=== PATIENT | female | born 1970 | race Caucasian/White ===

== ENCOUNTER 2024-11-10 10:54 | Outpatient (REF) | payer BC, SELFPAY ==
--- NOTE | ~2024-11-10 | XR_ITS ---
EXAMINATION: XR FOOT 3 OR MORE VIEWS RIGHT HISTORY: M79.671 - Pain in right foot COMPARISON: There are no prior studies available for comparison. FINDINGS: Three views of the right foot are submitted. Osseous mineralization is normal. There is no fracture or dislocation. The joint spaces are preserved. There is a small plantar calcaneus spur and small spur at the insertion of the Achilles tendon. The soft tissues are unremarkable. XR/XR foot RT min 3V IMPRESSION: Calcaneal spurs as described. Otherwise unremarkable examination of the right foot. Electronically signed by: Sánchez Saeed MD 11/10/2024 03:48 PM EDT
--- OUTSIDE RECORDS SUMMARY | 2024-11-10 14:22 | XMS_ITS ---
Author Name CRISP Organization Unknown Care Team Organization Name Specialty Phone Email Start Date End [facility]
[2024-11-10 18:17] LABS: MANUAL DIFF FLAG NO
[2024-11-10 18:29] LABS: Basophils Absolute Auto 0.1 X10*3/uL (0.0-0.2); Basophils Percent Auto 0.9 % (0-2); Eosinophils Percent Auto 0.7 % (0-4); Hematocrit 43.8 % (37.0-47.0); Hemoglobin 14.3 g/dl (12.0-16.0); Imm Gran Abs Auto 0.02 X10*3/uL (0.00-0.03); Imm Gran Pct Auto 0.4 % (0.0-0.4); Lymphocytes Absolute Auto 1.7 X10*3/uL (1.2-4.9); Mean Corpuscular HGB Conc 32.6 g/dl (31.0-35.0); Mean Platelet Volume 9.9 fL (9.4-12.3); Monocytes Absolute Auto 0.5 X10*3/uL (0.1-1.2); Monocytes Percent Auto 8.6 % (2-11); Neutrophils Absolute Auto 3.4 x10*3/uL (2.0-8.3); Neutrophils Percent Auto 59.4 % (45-73); Platelet Count 334 X10*3/uL (160-400); Red Blood Count 4.61 X10*6/uL (4.20-5.50); Red Cell Distribution Width 12.7 % (11.0-16.0); White Blood Count 5.7 X10*3/uL (4.8-10.8)
[2024-11-10 18:37] LABS: Appearance Urine Clear; Color Urine Dark Yellow; Glucose Urine UA Negative (Negative); Leukocyte Esterase Urine Negative (Negative); Nitrite Urine Negative (Negative); Urine Blood Negative (Negative); Urine Ketones Negative (Negative); Urine Protein Negative (Neg-Trace)
[2024-11-10 18:43] LABS: Bacteria Urine None Seen (None Seen); Hyaline Casts Urine 0-2 /LPF (0-2); RBC Urine 0-2 /HPF (0-2); Squamous Epithelial Cell Urine 0-2 /HPF (0-2); WBC Urine 0-5 /HPF (0-5)
[2024-11-10 18:46] LABS: Alanine Aminotransferase 62 U/L (0-31); Aspartate Amino Transferase 66 U/L (5-31); Estimated Glomerular Filt Rate > 60
[2024-11-10 19:01] LABS: Creatinine Urine 97.31 mg/dL; Protein/Creatinine Ratio, Ur 0.11 (<0.2); Total Protein Urine Random 11 mg/dL (<12)
[2024-11-10 19:10] LABS: Erythrocyte Sedimentation Rate 13 MM/HR (0-20)
[2024-11-11 09:38] LABS: Complement C3 167 mg/dL (83-193)
[2024-11-11 22:28] LABS: Anti DNA DS Antibody 1 IU/mL; Antibody to SS-A Antigen <1.0 NEG AI (<1.0 NEG); Antibody to SS-B Antigen <1.0 NEG AI (<1.0 NEG); SM/Ribonucleoprotein Ab <1.0 NEG AI (<1.0 NEG); Smith Protein <1.0 NEG AI (<1.0 NEG)
== END 2024-11-10 10:55 | disposition home or self-care (01) ==
LOC: HO.HKASLDS 10:54
PROVIDERS: PCP Internal Medicine; Visit Provider Internal Medicine Rheumatology
DX: R76.8 Other specified abnormal immunological findings in serum (principal); M79.671 Pain in right foot; R20.0 Anesthesia of skin
CPT/HCPCS: 36415; 73630; 81001; 82565; 82570; 84156; 84450; 84460; 85025; 85652; 86160; 86225; 86235

== ENCOUNTER 2024-11-10 10:54 | Outpatient (AMB) | payer BC, SELFPAY ==
--- NOTE | 2024-11-10 11:05 | MHC.OFFVIS ---
Vital Signs 11/10/24 11:13 Height 5 ft 5.5 in Weight 253 lb 15.56 oz BMI 41.6 BP 126/80 Blood Pressure Location Rt brachial Position Sitting Pulse 90 Pulse Source Pulse Oximeter Pulse Oximetry (%) 98 Oxygen Delivery Method Room Air Intake Visit Reasons: + RAVINDRA Intake Note: Patient presents today for positive ravindra. Accompanied by: Spouse Allergies No Known Allergies Allergy (Verified 11/10/24 11:15) HPI HPI + RAVINDRA: Details: New patient visit due to low titer positive RAVINDRA 1:80. She developed diffuse pruritis rash on face and extremities with bumps in June 2024. She also had swelling and erythema of her earlobes. Lasted weeks. Used 's topical steroid, which resolved a lot of the rash. She continues to have lesions such as on her right thigh but they are not as pruritic. She is not treating the lesions at this time. She has had longstanding erythema on her face including her cheeks exacerbated with anxiety and when she feels hot. Denies new medications prior to onset of rash. Denies sickness/illness prior to onset of rash. Prior to onset of rash, she started resin art in February-Jun 2024. 2 weeks ago she had sunburn anterior chest from being outside for 20 minutes. Hair is thinner. She denies bald spots. She has not shaved her hair on her legs in a long time. Hand numbness in bilateral hands attributed to cervical nerve compression. She had cervical diskectomy performed by Dr. Hurtado. Numbness in hands is progressively getting worse. Hard to use hands. She can't feel her hands. 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 She no longer works outside of school commitments. She has to work as a hairdresser for 40 years. R foot pain is constant with swelling for a year. She is having difficulty walking due foot pain and due to exhaustion and fatigue despite sleeping 10 hours. Hx LUI on CPAP. +night sweats. Denies fevers, dyspnea, pleurisy, oral ulcers, genital ulcers, Raynaud's phenomenon, urinary symptoms. She has mild dry eyes and dry mouth. She has had history of hypertension, cervical myelopathy, fibromyalgia, chronic bacterial vaginosis infection, cholecystectomy and cervical diskectomy. Medication list reviewed with patient. No family history of rheumatological disease. COUNTS INCLUDE 234 BEDS AT THE [facility] Medical History (Updated 11/10/24 @ 15:28 by Ector Gates MD) Sleep apnea Asthma Cervical myelopathy Spinal stenosis Fibromyalgia Fracture of left lower leg Positive RAVINDRA (antinuclear antibody) Surgical History (Updated 11/10/24 @ 11:20 by Julissa Bradley CMA) H/O colectomy History of discectomy Review of Systems Const All systems reviewed & are unremarkable except as noted in HPI and below Physical Exam Vital Signs: Last Vital Signs Pulse 90 11/10/24 11:13 BP 126/80 11/10/24 11:13 Pulse Ox 98 11/10/24 11:13 Oxygen Delivery Method Room Air 11/10/24 11:13 BMI result Body Mass Index 41.6 Const Other: General: Comfortable CVS: RRR Respiratory: clear to auscultation bilaterally. Good respiratory effort Skin: Erythema of face involving forehead, chin, cheeks, which does not spare nasolabial fold. Hyperpigmented circular lesions on right medial thigh and bilateral forearms. MSK: No tenderness or synovitis of any joints. Normal range of motion of upper extremity and lower extremity. Positive Phalen's test bilateral Assessment & Plan Assessment & Plan (1) Bilateral hand numbness: Comment: Chronic. Her symptoms of bilateral hand numbness have been attributed to cervical myelopathy although symptoms have not improved after C-spine discectomy. She has had progressive worsening of symptoms with reduced function as she is no longer able to continue to be a hairdresser. Phalen's test is positive on exam. Code(s): R20.0 - Anesthesia of skin Category: Medical Plan: EMG upper extremities ordered for evaluation of possible carpal tunnel syndrome contributing to patient's symptoms Return to clinic in 1-2 months for review results (2) Positive RAVINDRA (antinuclear antibody): Comment: Low titer positive, fatigue, sicca symptoms is concerning for Sjogren syndrome. She is also experiencing hair loss and photosensitivity. Her labs from 2023 did not reveal cytopenia, kidney dysfunction or elevated inflammatory markers with normal TSH. She had a diffuse pruritic rash in June with improvement with using topical steroid but she continues to have erythematous lesions on her extremities of unclear etiology. I reviewed photos that patient had in her phone. Her rash does not represent classic cutaneous manifestation of connective tissue disease. Code(s): R76.8 - Other specified abnormal immunological findings in serum Category: Medical Plan: I recommend that she contact PCP for Dermatology consult for evaluation of her rash and further management I have ordered labs for further evaluation of Sjogren syndrome and will complete workup for SLE. Return to clinic in 1-2 months to review results (3) Right foot pain: Comment: Affecting gait. She had tenderness of MTPs without synovitis on exam. Code(s): M79.671 - Pain in right foot Category: Medical Plan: Right foot x-ray ordered Return to clinic in 1-2 months to review results Orders: Orders NE nerve conduction velocity Today R20.0 - Anesthesia of skin Sjogren's Antibodies Today R76.8 - Other specified abnormal immunological findings in serum Sm Sm/CAGER OPERATOR Antibodies Today R76.8 - Other specified abnormal immunological findings in serum Complement C3 Today R76.8 - Other specified abnormal immunological findings in serum Erythrocyte Sedimentation Rate Today R76.8 - Other specified abnormal immunological findings in serum Protein Creatinine Ratio, Ur Today R76.8 - Other specified abnormal immunological findings in serum Creatinine Today R76.8 - Other specified abnormal immunological findings in serum Anti DNA DS Antibody Today R76.8 - Other specified abnormal immunological findings in serum Complement C4 Today R76.8 - Other specified abnormal immunological findings in serum UA w Microscopic Today R76.8 - Other specified abnormal immunological findings in serum Alanine Aminotransferase Today R76.8 - Other specified abnormal immunological findings in serum Aspartate Amino Transferase Today R76.8 - Other specified abnormal immunological findings in serum Complete Blood Count Auto Diff Today R76.8 - Other specified abnormal immunological findings in serum XR foot RT min 3V Today M79.671 - Pain in right foot Coding Level of Care Code New Pt Level 4 (90661) Diagnoses Bilateral hand numbness R20.0 Positive RAVINDRA (antinuclear antibody) R76.8 Right foot pain M79.671
[2024-11-10 11:13] VITALS: BP 126/80; PULSE 90; O2SAT 98; BMI 41.6
--- OUTSIDE RECORDS SUMMARY | 2024-11-10 12:48 | XMS_ITS | Continuity of Care Document ---
Author Organization [facility] Address [address] [place] [address]- Support Name Relationship Address Phone ROSANNE MARSHA Personal Relationship Unknown Unava ilable LAY, NICOL Personal Relationship Unknown Unavai lable LAY, NICOL Personal Relationship Unknown Unavai lable OSIRIS CAIN mother Unknown Unavailable ROSANNE MARSHA Personal Relationship Unknown Unava ilable LAY, NICOL Personal Relationship Unknown Unavai lable LAY, NICOL Personal Relationship Unknown Unavai lable LAY, NICOL Personal Relationship Unknown Unavai lable LAY, NOHELIA Personal Relationship Unknown Unav ailable LAY, NICOL Personal Relationship Unknown Unavai lable ROSANNE, IVELISSEK Personal Relationship Unknown Unavai lable LAY, NICOL Personal Relationship Unknown Unavai lable LAY, NOHELIA Personal Relationship Unknown Unav ailable LAY, NOHELIA Personal Relationship Unknown Unav ailable LAY, NICOL Personal Relationship Unknown Unavai lable LAY, NICOL Personal Relationship Unknown Unavai lable LAY, NICOL Personal Relationship Unknown Unavai lable LAY, NICOL Personal Relationship Unknown Unavai lable BEVERLY LOPEZ Personal Relationship Unknown Unav ailable LAY, NICOL Personal Relationship Unknown Unavai lable LAY, NICOL Personal Relationship Unknown Unavai lable LAY, NOHELIA Personal Relationship Unknown Unav ailable LAY, NICOL Personal Relationship Unknown Unavai lable LAY, NOHELIA Personal Relationship Unknown Unav ailable LAY, NICOL Personal Relationship Unknown Unavai lable LAY, NICOL spouse Unknown Unavailable LAY, NICOL Personal Relationship Unknown Unavai lable LAY, NICOL Personal Relationship Unknown Unavai lable LAY, NICOL Personal Relationship Unknown Unavai lable LAY, NICOL spouse Unknown Unavailable LAY, NICOL Personal Relationship Unknown Unavai lable LAY, NICOL Personal Relationship Unknown Unavai lable LAY, NICOL Personal Relationship Unknown Unavai lable ROSANNE, NICOL Personal Relationship Unknown Unavai lable LAY, NICOL Personal Relationship Unknown Unavai lable LAY, NICOL Personal Relationship Unknown Unavai lable JOHN BEVERLY Personal Relationship Unknown Unav ailable LAY, NICOL Personal Relationship Unknown Unavai lable LAY, NICOL Personal Relationship Unknown Unavai lable ROSANNE, NICOL Personal Relationship Unknown Unavai lable LAY, NICOL Personal Relationship Unknown Unavai lable LAY, NICOL Personal Relationship Unknown Unavai lable Care Team Providers Care Wheat Buyer Name Role Phone Acacia Mcneal MD Primary Care Physician [phone] Encounter [facility] Date(s): 10/29/24 - 11/05/24 [facility] [address] [place] [id number] Encounter Diagnosis Adjustment disorder with mixed anxiety and depressed mood(Discharge Diagnosis) - 10/29/24 HTN (hypertension)(Discharge Diagnosis) - 10/29/24 Severe obesity(Discharge Diagnosis) - 10/29/24 LUI on CPAP(Discharge Diagnosis) - 10/29/24 Attending Physician: Acacia Mcneal MD Encounter Type: Office Visit Allergies, Adverse Reactions, Alerts Substance Criticality Severity Reaction Reaction Severity Status Bactrim ? reaction Active Cats congestion Active Mold asthma attack Active Grass congestion/sneezing Active house dust mite allergen extract congestion/sneezing Acti ve Latex skin rash Active Immunizations Given and Recorded Vaccine Date Status Refusal Reason influenza virus vaccine, inactivated 06/18/22 Give n influenza virus vaccine, inactivated 05/14/21 Giovani rded influenza virus vaccine, inactivated 1 07/29/19 Gi kevin influenza virus vaccine, inactivated 2 05/21/11 Gi kevin influenza virus vaccine, inactivated 3 05/15/08 Gi kevin SARS-CoV-2 (COVID-19) mRNA BNT-162b2 vac 05/14/21 Recorded SARS-CoV-2 (COVID-19) mRNA BNT-162b2 vac 10/10/20 Recorded SARS-CoV-2 (COVID-19) mRNA BNT-162b2 vac 09/18/20 Recorded tetanus/diphtheria/pertussis, acel(Tdap) 4 07/29/19 Given Adacel (Tdap) (oldterm) 04/19/09 Given FluLaval (oldterm) 04/19/09 Given 1Result Comment: pt handled procedure well with no complaints. PROPERTY ANALYST NDC: [id number] 2Admin Note: MANUFACTURE BIOMEDICAL INFO SHEET GIVEN GIVEN W/O INCIDENT 3Admin Note: givenb @ work 4Result Comment: pt handled procedure well with no complaints. PROPERTY ANALYST NDC: [id number] Medications amlodipine-benazepril 5 mg-10 mg oral capsule 1 capsule, By Mouth, Daily, # 90 capsule, 1 Refills, Maintenance, 08/30/24 1:19:00 PM EST, Capsule, [id number], Partial fill upon patient request if the prescription is for a schedule II opioid drug., 1 capsule By Mouth Daily, 166, cm, 08/30/24 12:45:00 EST, Height, 114.5, kg, 08/30/24 12:37:00 EST, Dry Weight Start Date: 08/30/24 Status: Ordered Quantity: 90.0 Unit: capsule Repeat number: 2 Ascorbic Acid = 1,000 mg, By Mouth, Daily, 0 Refills, Maintenance, 06/11/19 8:19:21 AM EST Start Date: 06/11/19 Status: Ordered Repeat number: 1 Breyna 160 mcg-4.5 mcg/inh inhalation aerosol 2 inhalation, Inhalation, 2 times a day, rinse mouth and throat after use, # 10.3 Gm, 6 Refills, Maintenance, 10/01/24 3:36:00 PM EST, Aerosol, [id number], Partial fill upon patient request ifthe prescription is for a schedule II opioid drug., 2 inhalation Inhalation 2 times a day,Instr:rinse mouth and throat after use, 166, cm, 10/01/24 14:59:00 EST, Height, 114.5, kg, 08/30/24 12:37:00 EST, Dry Weight Start Date: 10/01/24 Status: Ordered Quantity: 10.3 Unit: g Repeat number: 7 cholecalciferol 1000 intl units oral capsule 1 capsule = 1,000 International_Units, By Mouth, Daily, 0 Refills, Maintenance, 06/11/19 8:20:05 AM EST Start Date: 06/11/19 Status: Ordered Repeat number: 1 Colace sodium 100 mg oral capsule 100 mg, 1, capsule, By Mouth, 2 times a day, PRN, # 60 capsule, Refills 11, Tot. Refills 11, Maintenance, for constipation, 10/25/22 1:42:00 PM EDT, Route to Pharmacy Electronically, [id number], Partial fill upon patient request if the prescription is for a schedule II opioid drug., 167.4, cm, 10/25/22 13:07:00 EDT, Height, 109, kg, 02/28/22 14:32:00 EDT, Dry Weight Start Date: 10/25/22 Status: Ordered Quantity: 60.0 Unit: capsule Repeat number: 12 CPAP Machine See Instructions, # 1 each, Refills 11, Tot. Refills 11, Maintenance, E0601 AutoCPAP 7 to 20 cm [id number] compliance data A4604 Heated Tubing/Climate line or A7037 Tubing A7038 or A7039 Filters A7036 Chin strap A7046 Humidifier Chamber A7035 Headgear A7027, A7030, A7031, A7032, A7033, A7034 Nasal, Full or Pillow Mask and parts E0562 Heated Humidifier length of need Lifetime 99 months For home use,07/22/22 4:58:00 PM EST, Supply Start Date: 07/22/22 Status: Ordered Quantity: 1.0 Unit: each Repeat number: 12 DULoxetine 40 mg oral delayed release capsule 1 capsule = 40 mg, By Mouth, Daily, do not crush or chew, # 30 capsule, 5 Refills, Maintenance, 10/29/24 3:51:00 PM EDT, CR Capsule, [facility]pharm[facility] #[id number], Partial fill upon patient request if the prescription is for a schedule II opioid drug., 166, cm, 10/29/24 15:22:00 EDT, Height, 116.2, kg, 10/29/24 15:22:00 EDT, Dry Weight Start Date: 10/29/24 Status: Ordered Quantity: 30.0 Unit: capsule Repeat number: 6 estradiol 0.1 mg/g vaginal cream See Instructions, 1 Gm Vaginally twice weekly at bedtime, # 42.5 Gm, 2 Refills, Maintenance, 06/07/24 10:31:00 AM EST, [facility]pharmacy #[id number], Partial fill upon patient request if the prescription is for a schedule II opioid drug., 165, cm, 06/07/24 9:47:00 EST, Height, 114.9, kg, 06/07/24 9:47:00 EST, Dry Weight Start Date: 06/07/24 Status: Ordered Quantity: 42.5 Unit: g Repeat number: 3 Indication: Other specified menopausal and perimenopausal disorders Immunotherapy injections Immunotherapy injections, Refills 0, Maintenance, 2 shots every week, 06/10/19 3:16:18 PM EST, Compound Start Date: 06/10/19 Status: Ordered Repeat number: 1 ipratropium nasal 21 mcg/inh spray 2 sprays = 42 mcg, Nares, Both, 2 times a day, # 30 mL, 6 Refills, Maintenance, 10/01/24 3:33:00 PM EST, [place], [facility]/pharmacy #[id number], Partial fill upon patient request if the prescription is for a schedule II opioid drug., 2 sprays Nares, Both 2 times a day, 166, cm, 10/01/24 14:59:00 EST, Height, 114.5, kg, 08/30/24 12:37:00 EST, Dry Weight Start Date: 10/01/24 Status: Ordered Quantity: 30.0 Unit: mL Repeat number: 7 omeprazole 40 mg oral enteric coated capsule 1 capsule = 40 mg, By Mouth, Daily, # 90 capsule, 3 Refills, Maintenance, 03/05/19 10:17:27 AM EDT, EC Capsule, [id number] Start Date: 03/05/19 Status: Ordered Quantity: 90.0 Unit: capsule Repeat number: 4 PAP Supplies PAP Supplies, See Instructions, # 1 each, Refills 11, Tot. Refills 11, Maintenance, E0570 PAP supplies Refill mask and supplies A4604 Heated Tubing/Climate line or A7037 Tubing A7038 or A7039 [id number] Chin strap A7046 Humidifier Chamber A7035 Headgear A7027, A7030, A7031, A7032, A7033, A7034 Na ramila, Full or Pillow Mask and parts E0562 Heated Humidifier length of need Lifetime 99 months Dx [id number], 10/04/24 9:58:00 AM EST, Supply Start Date: 10/04/24 Status: Ordered Quantity: 1.0 Unit: each Repeat number: 12 ProAir HFA 90 mcg/inh inhalation aerosol with adapter 2, puffs, Inhalation, Every 6 hours, PRN, PRN, # 18 Gm, Refills 11, Tot. Refills 11, Maintenance, 09/16/23 11:04:00 AM EST, Inhaler, Route to Pharmacy Electronically, [id number], [facility]pharmacy #[id number], 167.4, cm, 02/12/23 13:47:00 EDT, Height, 109, kg, 02/28/22 14:32:00 EDT, Dry Weight Start Date: 09/16/23 Status: Ordered Quantity: 18.0 Unit: g Repeat number: 12 Spacer Spacer, See Instructions, # 1 each, Refills 3, Tot. Refills 3, Maintenance, To be used with MDI as directed. ICD-10 J45.909, 10/01/24 3:38:00 PM EST, Supply, 166, cm, 10/01/24 14:59:00 EST, Height, 114.5, kg, 08/30/24 12:37:00 EST, Dry Weight Start Date: 10/01/24 Status: Ordered Quantity: 1.0 Unit: each Repeat number: 4 Viactiv Multi-Vitamin Daily, 0 Refills, Maintenance, 06/07/24 9:49:00 AM EST, Partial fill upon patient request if the prescription is for a schedule II opioid drug. Start Date: 06/07/24 Status: Ordered Repeat number: 1 Vitamin C 250 mg oral tablet 1 tablet = 250 mg, By Mouth, Daily, # 30 tablet, 0 Refills, Maintenance, 06/07/24 9:48:00 AM EST, Tablet, Partial fill upon patient request if the prescription is for a schedule II opioid drug. Start Date: 06/07/24 Status: Ordered Quantity: 30.0 Unit: tablet Repeat number: 1 Xyzal 5 mg oral tablet 1 tablet = 5 mg, By Mouth, Daily before dinner, # 30 tablet, 3 Refills, Maintenance, 06/24/24 1:55:00 PM EST, Tablet, [facility]/pharmacy #[id number], Partial fill upon patient request if the prescription is for a schedule II opioid drug., 1 tablet By Mouth Daily before dinner, 165, cm, 06/24/24 13:34:00 EST, Height, 114.9, kg, 06/07/24 9:47:00 EST, Dry Weight Start Date: 06/24/24 Status: Ordered Quantity: 30.0 Unit: tablet Repeat number: 4 Problem List Condition Confirmation Course Effective Dates Status Health St atus Informant Adjustment disorder with mixed anxiety and depressed mood Confirmed Active Alcohol abuse Confirmed Active Allergic rhinitis Confirmed Active Facet arthropathy, lumbosacral Confirmed Active Asthma Confirmed Active CLASSICAL MIGRAINE Confirmed 10/17/08 Active Constipation Confirmed Active Sleeping difficulty Confirmed Active Diverticular disease Confirmed Active Eustachian tube dysfunction Confirmed Active Shortness of breath Confirmed Active Eczema Confirmed Active Female stress incontinence Confirmed Active Fibromyalgia Confirmed Active Generalized anxiety disorder Confirmed Active Herpetic darrin Confirmed Active HTN (hypertension) Confirmed Active Bowel incontinence Confirmed Active Kidney stone Confirmed Active Obesity Confirmed Active LUI on CPAP Confirmed Active Sacroiliac dysfunction Confirmed Active Severe obesity Confirmed Active Cervical spinal stenosis Confirmed Active Fatty liver Confirmed Active Diagnosis Diagnosis Type Effective Dates Health Status Clinical Service Informant Adjustment disorder with mixed anxiety and depressed mood Discharge Diagnosis 10/29/24 HTN (hypertension) Discharge Diagnosis 10/29/24 Severe obesity Discharge Diagnosis 10/29/24 LUI on CPAP Discharge Diagnosis 10/29/24 Vital Signs Most recent to oldest [Reference Range]: 1 2 Height 166 cm (10/29/24 4:01 PM) 166 cm (10/29/24 3:22 PM) Weight 116.2 kg (10/29/24 3:22 PM) Oxygen Saturation [94-100 %] 96 % (10/29/24 3:22 PM) Pulse Rate [55-90 bpm] 93 bpm *H* (10/29/24 3:22 PM) Body Mass Index [18.5-24.99 kg/m2] 42.17 kg/m2 *>HHI* (10/29/24 3:22 PM) Blood Pressure [90-138/55-84 mm Hg] 136/ 70mm Hg (10/29/24 4:01 PM) 143/81mm Hg *H* (10/29/24 3:22 PM) Mode of Delivery (Oxygen) Room air (10/29/24 3:22 PM) Blood pressure sites Arm, left (10/29/24 3:22 PM) Dry Weight 116.2 kg (10/29/24 3:22 PM) Weight Obtained Via Standing scale (10/29/24 3:22 PM) Social History Social History Type Response Smoking Status Never (less than 100 in lifetime) entered on: 12/08/23 Sex Sex Representation Female (finding) Patient Care team information Care Team Personnel Name: Acacia Mcneal MD Position: [facility] Physician - Primary Care Member Role: PCP Address: [address] [place] [address] Adult and Pediatric Medicine [address] Telecom: Name: Luigi Mancilla [place] Position: [facility] [place] Member Role: Primary Care Nurse Name: Dana Junior RN Position: [facility] RN Member Role: Primary Care Nurse Name: Marta Pack RN Position: [facility] RN Member Role: Primary Care Nurse Name: Kathi Guzmán RN Position: [facility] RN Member Role: Primary Care Nurse Name: Gali Dc RN Position: [facility] RN Member Role: Primary Care Nurse Name: Christine Traore RN Position: [facility] RN Member Role: Primary Care Nurse Name: Bettina Chamberlain RN Position: [facility] RN Member Role: Primary Care Nurse Care Team Related Persons Name: OSIRIS CAIN Name: NICOL LAY Insurance Providers Guarantor name: MARSHA LAY Health Plan Information #: 1 Payer: HMO [employer] Member Number: [id number] Policy Number: NA Group Number: [id number] Health Plan Information #: 2 Payer: HMO [employer] Member Number: [id number] Policy Number: NA Group Number: NA
--- OUTSIDE RECORDS SUMMARY | 2024-11-10 12:48 | XMS_ITS | Data Portability ---
Author Organization [facility] - [facility], Allergy Address 100 [facility] 100 [place] [address] Assessment Encounter Date Assessment Date Assessment LastModified by Organization Details LastModified Time 08/26/2024 08/26/2024 Visit With: Ela Rivera Use of Antihistamine s: No If yes: Vial Test Yes Change in medications: No If yes ? ? ? Increase in asthma symptoms No If yes, inhaler use: Reaction to last injections: Yes If yes: ? ? ?large local reaction- all doses reduced Allergy Symptoms: Other: ? ? ? Missed: Dose Aware of Vial Test Notes:? ? ? hlorinser Not available 08/26/2024 16:01:20 09/10/2024 09/10/2024 Visit With: NETTA Boswell Use of Antihistamine s: No If yes: Vial Test Change in medications: No If yes ? ? ? Increase in asthma symptoms If yes, inhaler use: Reaction to last injections: No If yes: ? ? ? Allergy Symptoms: Other: ? ? ? Missed: Dose Aware of Vial Test Notes:? ? ? isael Not available 09/10/2024 15:30:02 09/24/2024 09/24/2024 Visit With: NETTA Boswell Use of Antihistamine s: No If yes: Vial Test Change in medications: No If yes ? ? ? Increase in asthma symptoms No If yes, inhaler use: Reaction to last injections: No If yes: ? ? ? Allergy Symptoms: Other: ? ? ? Missed: Dose Aware of Vial Test Notes:? ? ? hlorinser Not available 09/24/2024 13:22:52 10/07/2024 10/07/2024 Visit With: NETTA Boswell Use of Antihistamine s: No If yes: Vial Test Change in medications: Yes If yes ? ? ?symbicort Increase in asthma symptoms No If yes, inhaler use: Reaction to last injections: No If yes: ? ? ? Allergy Symptoms: Other: ? ? ? Missed: Dose Aware of Vial Test Notes:? ? ? hlorinser Not available 10/07/2024 15:25:32 10/21/2024 10/21/2024 Visit With: NETTA Boswell Use of Antihistamine s: No If yes: Vial Test Change in medications: No If yes ? ? ? Increase in asthma symptoms If yes, inhaler use: Reaction to last injections: No If yes: ? ? ? Allergy Symptoms: Other: ? ? ? Missed: Dose Aware of Vial Test Notes:? ? ?back to monthly skorzec Not available 10/21/2024 15:26:51 Plan of Treatment Reminders Order Date Submit Date Provider Last Modified By Organization Details Last Modified Time Details Appointments [facility]- Allergy f-up 6mon 2024 10:00A M DIOGENES COLLIER MD Not available Not available Not available Lab None recorded . Referral None recorded . Procedures None recorded . Surgeries None recorded . Imaging None recorded . Medication Orders None recorded . Patient TargetsNo targets recorded. Patient InstructionsNo instructions recorded. Reason for Referral None Reported. Problems Name Problem SNOMED Code Status Onset Date Resolution Date Notes Provider Name and Address Organization Details Recorded Time Nasal congestio n 68756483 Active 2018 Nasal congestio n; Note: Date Diagnosed : 12/18/2018 9:40 AM (R09.81) Not Available [facility] 4 02:24:22 History of SARS-CoV- 2 [id number] Active 2022 Personal history of COVID-19; Note: Date Diagnosed : 08/23/2022 2:26 PM (Z86.16) Not Available [facility] 4 02:23:55 Deviated nasal septum 430074476 Active 2018 Deviated nasal septum; Note: Date Diagnosed : 12/18/2018 9:37 AM (J34.2) Not Available [facility] 4 02:23:47 Impacted cerumen in left ear 28260527057 38860 Active 2020 Impacted cerumen, left ear; Note: Date Diagnosed : 08/16/2020 4:18 PM (H61.22) Not Available [facility] 02:23:57 Allergic rhinitis 04639360 Active 2023 Allergic rhinitis: Due to other allergen; Note: Date Diagnosed : 08/21/2023 4:00 PM (477.8) Note: Date Diagnosed : 08/21/2023 4:00 PM (477.8) Allergi c rhinitis: Due to other allergen; Note: Date Diagnosed : 08/08/2023 3:58 PM (477.8) Note: Date Diagnosed : 08/08/2023 3:58 PM (477.8) ; Start Date : Allergi c rhinitis: Due to other allergen; Note: Date Diagnosed : 3 3:41 PM (477.8) Note: Date Diagnosed : 3 3:41 PM (477.8) ; Start Date : 3 Allergi c rhinitis: Due to other allergen; Note: Date Diagnosed : 3 3:53 PM (477.8) Note: Date Diagnosed : 3 3:53 PM (477.8) ; Start Date : 3 Allergi c rhinitis: Due to other allergen; Note: Date Diagnosed : 07/11/2023 3:30 PM (477.8) Note: Date Diagnosed : 07/11/2023 3:30 PM (477.8) ; Start Date : 3 Allergi c rhinitis: Due to other allergen; Note: Date Diagnosed : 3 4:08 PM (477.8) Note: Date Diagnosed : 3 4:08 PM (477.8) ; Start Date : 3 Allergi c rhinitis: Due to other allergen; Note: Date Diagnosed : 3 3:51 PM (477.8) Note: Date Diagnosed : 3 3:51 PM (477.8) ; Start Date : 3 Allergi c rhinitis: Due to other allergen; Note: Date Diagnosed : 06/12/2023 3:55 PM (477.8) Note: Date Diagnosed : 06/12/2023 3:55 PM (477.8) ; Start Date : Allergi c rhinitis: Due to other allergen; Note: Date Diagnosed : 06/06/2023 2:55 PM (477.8) Note: Date Diagnosed : 06/06/2023 2:55 PM (477.8) ; Start Date : Allergi c rhinitis: Due to other allergen; Note: Date Diagnosed : 3:19 PM (477.8) Note: Date Diagnosed : 3:19 PM (477.8) ; Start Date : Allergi c rhinitis: Due to other allergen; Note: Date Diagnosed : 10:51 AM (477.8) Note: Date Diagnosed : 10:51 AM (477.8) ; Start Date : Allergi c rhinitis: Due to other allergen; Note: Date Diagnosed : 05/02/2023 3:57 PM (477.8) Note: Date Diagnosed : 05/02/2023 3:57 PM (477.8) ; Start Date : Allergi c rhinitis: Due to other allergen; Note: Date Diagnosed : 04/17/2023 3:18 PM (477.8) Note: Date Diagnosed : 04/17/2023 3:18 PM (477.8) ; Start Date : Allergi c rhinitis: Due to other allergen; Note: Date Diagnosed : 04/11/2023 3:18 PM (477.8) Note: Date Diagnosed : 04/11/2023 3:18 PM (477.8) ; Start Date : Allergi c rhinitis: Due to other allergen; Note: Date Diagnosed : 04/04/2023 3:05 PM (477.8) Note: Date Diagnosed : 04/04/2023 3:05 PM (477.8) ; Start Date : Allergi c rhinitis: Due to other allergen; Note: Date Diagnosed : 03/28/2023 11:48 AM (477.8) Note: Date Diagnosed : 03/28/2023 11:48 AM (477.8) ; Start Date : Allergi c rhinitis: Due to other allergen; Note: Date Diagnosed : 03/11/2023 2:32 PM (477.8) Note: Date Diagnosed : 03/11/2023 2:32 PM (477.8) ; Start Date : Allergi c rhinitis: Due to other allergen; Note: Date Diagnosed : 03/07/2023 3:06 PM (477.8) Note: Date Diagnosed : 03/07/2023 3:06 PM (477.8) ; Start Date : Allergi c rhinitis: Due to other allergen; Note: Date Diagnosed : 02/27/2023 3:22 PM (477.8) Note: Date Diagnosed : 02/27/2023 3:22 PM (477.8) ; Start Date : Allergi c rhinitis: Due to other allergen; Note: Date Diagnosed : 02/21/2023 2:53 PM (477.8) Note: Date Diagnosed : 02/21/2023 2:53 PM (477.8) ; Start Date : Allergi c rhinitis: Due to other allergen; Note: Date Diagnosed : 02/13/2023 3:19 PM (477.8) Note: Date Diagnosed : 02/13/2023 3:19 PM (477.8) ; Start Date : Allergi c rhinitis: Due to other allergen; Note: Date Diagnosed : 01/31/2023 12:06 PM (477.8) Note: Date Diagnosed : 01/31/2023 12:06 PM (477.8) ; Start Date : Allergi c rhinitis: Due to other allergen; Note: Date Diagnosed : 01/23/2023 2:36 PM (477.8) Note: Date Diagnosed : 01/23/2023 2:36 PM (477.8) ; Start Date : Allergi c rhinitis: Due to other allergen; Note: Date Diagnosed : 01/03/2023 4:07 PM (477.8) Note: Date DIOGENES COLLIER MD [address] [facility],[place] [address], [place], [address] , [facility] - [facility] 4 13:58:13 Impacted cerumen in right ear [id number] 74893 Active 2019 Impacted cerumen, right ear; Note: Date Diagnosed : 02/15/2020 10:41 AM (H61.21) Not Available [facility] 4 02:23:50 Perennial allergic rhinitis 501293408 Active 2023 EDITA RIVER [address],[place] [address], [place], [address] , [facility] - [facility] 4 15:54:54 Feeling of lump in throat 539590410 Active 2024 DIOGENES COLLIER MD [address] [facility],[place] [address], [place], [address] , [facility] - [facility] 5 16:07:00 Problem Notes None recorded. Procedures Surgical History Date Name Laterality Status Provider Name and Address Organization Details Recorded Time 10/22/19 25 Allergy Immunotherapy Injections completed EDITA RIVER Mehul [address] [facility] [facility] [place],[address], [address], [facility] - [facility] 10/21/2024 15:26:36 10/08/19 25 Allergy Immunotherapy Injections completed BRADLEY VERDE RN [address] [facility],[address], [address], [facility] - [facility] 10/07/2024 15:25:19 09/24/19 25 Allergy Immunotherapy Injections completed BRADLEY VERDE RN [address] [place] [address],[address], [phone], [facility] - [facility] 09/24/2024 13:22:38 09/10/19 25 Allergy Immunotherapy Injections completed EDITA RIVER Mehul [address] [facility] [place],[address], [address], [facility] - [facility] 09/10/2024 15:29:54 08/26/19 25 Allergy Immunotherapy Injections completed BRADLEY VERDE RN [address] [facility] [place] [address] [place] [address], [phone], [place] - [facility] 08/26/2024 16:00:24 08/26/19 25 FOL_DP completed DIOGENES COLLIER MD [address],[place] [address] [place] [address], [phone], [place] - [facility] 08/26/2024 16:06:52 07/22/20 24 Allergy Immunotherapy Injections completed NETTA RAZO [address],[place] [address] [place] [address], [phone], [place] - [facility] 07/22/2024 15:43:50 07/14/20 24 Allergy Immunotherapy Injections completed NETTA RAZO [address],[place] [address] [place] [address], [phone], [place] - [facility] 07/14/2024 15:50:30 05/25/20 24 Allergy Immunotherapy Injections completed NETTA RAZO [address] [facility] [place] [address] [place] [address], [phone], [place] - [facility] 05/25/2024 16:20:23 04/21/20 24 Allergy Immunotherapy Injections completed BRADLEY VERDE RN [address],[place] [address] [place] [address], [phone], [place] - [facility] 04/21/2024 16:01:19 03/23/20 24 Allergy Immunotherapy Injections completed NETTA BOSWELL [address],[place] [address] [place] [address], [phone], [place] - [facility] 03/23/2024 12:14:10 02/17/20 24 Allergy Immunotherapy Injections completed NETTA RAZO [address],[place] [address] [place] [address], [phone], [place] - [facility] 02/17/2024 14:42:06 01/15/20 24 Allergy Immunotherapy Injections completed NETTA RAZO [address] [facility] [place] [address] [place] [address], [phone], [place] - [facility] 01/15/2024 15:52:48 01/02/20 24 Allergy Immunotherapy Injections completed [address], [address], [facility] 01/02/2024 15:15:36 12/19/19 24 Allergy Immunotherapy Injections completed [facility], [facility] [address] [facility],[address], [address], [facility] 12/19/2023 15:55:22 Imaging Results None recorded. Procedure Notes None recorded. Medical Equipment None Reported. Allergies Allergen ID Allergen Name Allergen Category Reaction Reaction Severity Criticality Documentation Date Start Date Code Code System Note Provider Name and Address Organization Details Recorded Time 59875 Latex (substanc e) environme nt,medica tion hives Not available Not available 12/16/2023 49833 8007 SNOMED React ion: skin rashe s, hives ;; Not Available [facility] 4 00:53:15 28048 Bactrim medicatio n other Not available Not available 12/16/2023 69368 9 RxNorm Jefry silva [facility] 5 15:49:33 Medications Name Sig Start Date Stop Date Status Note LastModified by Organization Details LastModified Time biotin 10 mg tablet 2019 active Medicati on ID: [id number] B rand Name: biotin S end Method: E-Prescr ibed Sub s Allowed: subs OK Medic ationGen ericName : biotin Not Available Not Available Not Available azithromy sanket 250 mg tablet TAKE 2 TABLETS BY MOUTH TODAY, THEN TAKE 1 TABLET DAILY FOR 4 DAYS DIRECTED 08/26 completed Not Available Not Available Not Available Claritin 10 mg tablet Take 1 tablet by mouth once a day as directed 01/29 completed Medicati on ID: [id number] D uration Value: 90 Reason: () Brand Name: Claritin Send Method: E-Prescr ibed Sub s Allowed: subs OK Speci al Instruct ion: take 1 tablet by mouth once daily Me dication GenericN cecily: Claritin Not Available Not Available Not Available metronida zole 0.75 % (37.5 mg/5 gram) vaginal gel 1 APPLICAT OR VAGINALL Y DAILY AT BEDTIME, X5 DAYS active Not Available Not Available No t Available prednison e 20 mg tablet TAKE 2 TABLETS BY MOUTH EVERY DAY FOR 5 DAYS 08/26 completed Not Available Not Available Not Available amlodipin e 2.5 mg-benaze pril 10 mg capsule TAKE 1 CAPSULE BY MOUTH EVERY DAY active Not Available Not Available No t Available clobetaso l 0.05 % topical cream 06/24 completed Medicati on ID: [id number] D uration Value: 15 Reason: () Brand Name: clobetas ol Send Method: E-Prescr ibed Sub s Allowed: subs OK Medic ationGen ericName : clobetas ol Not Available Not Available Not Available metronida zole 500 mg tablet 06/24 completed Medicati on ID: [id number] D uration Value: 10 Reason: () Brand Name: metronid azole Se nd Method: E-Prescr ibed Sub s Allowed: subs OK Medic ationGen ericName : metronid azole Not Available Not Available Not Available ciproflox acin 500 mg tablet 06/24 completed Medicati on ID: [id number] D uration Value: 10 Reason: () Brand Name: ciproflo xacin HCl Send Method: E-Prescr ibed Sub s Allowed: subs OK Medic ationGen ericName : ciproflo xacin HCl Not Available Not Available Not Available omeprazol e 40 mg capsule,d elayed release 2018 active Medicati on ID: [id number] D uration Value: 30 Brand Name: omeprazo le Send Method: E-Prescr ibed Sub s Allowed: subs OK Medic ationGen ericName : omeprazo le Not Available Not Available Not Available amoxicill in 500 mg tablet TAKE 1 TABLET BY MOUTH 3 TIMES A DAY FOR 10 DAYS 08/26 completed Not Available Not Available Not Available amoxicill in 875 mg tablet TAKE 1 TABLET BY MOUTH TWICE A DAY FOR 7 DAYS 08/26 completed Not Available Not Available Not Available erythromy sanket 5 mg/gram (0.5 %) eye ointment ADMINIST ER TO THE RIGHT EYE 4 TIMES A DAY FOR 7 DAYS. 08/26 completed Not Available Not Available Not Available fluoxetin e 20 mg tablet 02/27 completed Medicati on ID: [id number] D uration Value: 30 Brand Name: fluoxeti ne Send Method: E-Prescr ibed Sub s Allowed: subs OK Medic ationGen ericName : fluoxeti ne Not Available Not Available Not Available diclofena c sodium 75 mg tablet,de layed release TAKE 1 TABLET BY MOUTH TWICE A DAY FOR 14 DAYS active Not Available Not Available No t Available vitamin B complex tablet 2019 active Medicati on ID: [id number] B rand Name: vitamin B complex Send Method: E-Prescr ibed Sub s Allowed: subs OK Medic ationGen ericName : vitamin B complex Not Available Not Available Not Available lorazepam 1 mg tablet 10/13 completed Medicati on ID: [id number] D uration Value: 2 Reason: () Brand Name: lorazepa m Send Method: E-Prescr ibed Sub s Allowed: subs OK Medic ationGen ericName : lorazepa m Not Available Not Available Not Available ibuprofen 600 mg tablet 08/26 completed Medicati on ID: [id number] D uration Value: 10 Brand Name: ibuprofe n Send Method: E-Prescr ibed Sub s Allowed: subs OK Medic ationGen ericName : ibuprofe n Not Available Not Available Not Available levofloxa sanket 500 mg tablet 01/29 completed Medicati on ID: [id number] D uration Value: 10 Reason: () Brand Name: levoflox acin Sen d Method: E-Prescr ibed Sub s Allowed: subs OK Medic ationGen ericName : levoflox acin Not Available Not Available Not Available estradiol 0.01% (0.1 mg/gram) vaginal cream 1 GM VAGINALL Y TWICE WEEKLY AT BEDTIME active Not Available Not Available No t Available methylpre dnisolone 4 mg tablets in a dose pack TAKE 6 TABLETS ON DAY 1 DIRECTED ON PACKAGE AND DECREASE BY 1 TAB EACH DAY FOR A TOTAL OF 6 DAYS 08/26 completed Not Available Not Available Not Available albuterol sulfate HFA 90 mcg/actua tion aerosol inhaler INHALE 2 PUFFS BY MOUTH EVERY 6 HOURS NEEDED FOR WHEEZING AND OR SHORTNES S OF BREATH active Not Available Not Available No t Available fluoxetin e 20 mg capsule 08/26 completed Medicati on ID: [id number] B rand Name: fluoxeti ne Send Method: E-Prescr ibed Sub s Allowed: subs OK Medic ationGen ericName : fluoxeti ne Not Available Not Available Not Available amoxicill in 875 mg-potass ium clavulana te 125 mg tablet TAKE 1 TABLET BY MOUTH TWICE A DAY FOR 10 DAYS active Not Available Not Available No t Available Vitamin C 500 mg capsule,e xtended release 2019 active Medicati on ID: [id number] B rand Name: Vitamin C Send Method: E-Prescr ibed Sub s Allowed: subs OK Medic ationGen ericName : Vitamin C Not Available Not Available Not Available amlodipin e 10 mg-benaze pril 20 mg capsule Take 1 capsule every day by oral route. 08/26 completed Not Available Not Available Not Available Vitamin D3 25 mcg (1,000 unit) capsule 2019 active Medicati on ID: [id number] B rand Name: Vitamin D3 Send Method: E-Prescr ibed Sub s Allowed: subs OK Medic ationGen ericName : Vitamin D3 Not Available Not Available Not Available duloxetin e 20 mg capsule,d elayed release TAKE 1 CAPSULE BY MOUTH EVERY DAY active Not Available Not Available No t Available duloxetin e 30 mg capsule,d elayed release TAKE 1 CAPSULE BY MOUTH EVERY DAY active Not Available Not Available No t Available Sudafed 01/29 completed Medicati on ID: [id number] R lucien: () Brand Name: sudafed Send Method: E-Prescr ibed Sub s Allowed: subs OK Medic ationGen ericName : sudafed Not Available Not Available Not Available Alaway 0.025 % (0.035 %) eye drops 2018 active Medicati on ID: [id number] D uration Value: 30 Brand Name: Alaway S end Method: E-Prescr ibed Sub s Allowed: subs OK Speci al Instruct ion: INSTILL 1 DROP INTO BOTH EYES EVERY 12 HOURS FOR 10 DAYS(OTC -NOT CVD) Med icationG enericNa me: Alaway Not Available Not Available Not Available Symbicort 160 mcg-4.5 mcg/actua tion HFA aerosol inhaler 08/26 completed Medicati on ID: [id number] B rand Name: Symbicor t Send Method: E-Prescr ibed Sub s Allowed: subs OK Medic ationGen ericName : Symbicor t Not Available Not Available Not Available Symbicort active Not Available Not Olive ilable Not Available EpiPen 2-Rodo 0.3 mg/0.3 mL injection , auto-inje ctor Take 1 auto as needed by injectio n route for 1 day, for anaphyla xis. 2023 active Not Available Not Available Not Avai lable Flonase Allergy Relief 50 mcg/actua tion nasal spray,elise pension 1 puff into both nostrils 2019 active Medicati on ID: [id number] D uration Value: 30 Brand Name: Flonase Allergy Relief S end Method: E-Prescr ibed Sub s Allowed: subs OK Medic ationGen ericName : Flonase Allergy Relief Not Available Not Available Not Available Wixela Inhub 500 mcg-50 mcg/dose powder for inhalatio n INHALE 1 PUFF BY MOUTH TWICE A DAY. RINSE MOUTH AND THROAT AFTER USE active Not Available Not Available No t Available Vitals None Recorded Social History None recorded. Functional Status None recorded. Mental Status None recorded. Family History Nothing Reported. Medical History Condition Response Allergies/Hayfever Y Heart Problems N Anxiety Y Tonsil Infections N Emphysema N Thyroid Problems N Developmental Delay N Glaucoma N Depression Y COPD N Nasal or Sinus Problems Y Anemia N Immune System Disorder N Anesthesia Complications N Heart Attack (ID) N Diabetes N Rhinitis Y Bleeding Disorder N Food Allergy N Arthritis N Hearing Loss N Hyperlipidemia N Cancer N Dementia N Nasal polyps N Asthma Y High Cholesterol N Sleep Disorder N GERD/Reflux Y Liver Disease Y Headaches Y Fibromyalgia Y Hypertension Y Speech Delay N Kidney Disease N Gynecological HistoryNo gynecological history recorded. Obstetrics History GPAL:G 0 P 0 0 0 0 Past Encounters Encounter ID Performer Location Encounter Start Date Encounter Closed Date Diagnosis/Indication Diagnosis SNOMED-CT Code Diagnosis ICD10 Code Diagnosis Note [id number] DIOGENES COLLIER MD Allergy [address] [facility],[place] 100 [facility] [place], [place] [address] 12/19/2023 10:51:17 12/22/2023 15:26:17 Perennial allergic rhinitis [id number] J30.89 [id number] [facility] Allergy [address] [place] [address],[place] [address] [place] [address] 01/02/2024 14:51:39 01/02/2024 15:24:27 Perennial allergic rhinitis [id number] J30.89 [id number] DIOGENES COLLIER MD [facility] - [place] [address] [facility] [place] [address] 01/15/2024 15:32:52 01/15/2024 16:22:02 Allergic rhinitis [id number] J30.89 [id number] ELA RIVERA [facility] Allergy [address] [place] [address], it[address] [place] [address] 01/15/2024 15:31:10 01/15/2024 16:08:41 Perennial allergic rhinitis 764099200 J30.89 [id number] ELA RIVERA [facility] Allergy [address] [place] [address] it[address] [place] [address] 02/17/2024 13:35:57 02/18/2024 13:21:29 Perennial allergic rhinitis [id number] J30.89 [id number] [facility] Allergy [address] [place] [address] it[address] [place] [address] 03/23/2024 11:48:47 03/23/2024 13:20:26 Perennial allergic rhinitis [id number] J30.89 [id number] BRADLEY VERDE RN Allergy [address] [place] [address], it[address] [place] [address] 04/21/2024 15:30:25 04/21/2024 16:01:44 Perennial allergic rhinitis [id number] J30.89 [id number] ELA RIVERA [facility] Allergy [address] [place] [address],[place] [address] [place] [address] 05/25/2024 14:53:58 05/25/2024 16:25:56 Perennial allergic rhinitis [id number] J30.89 [id number] ELA RIVERA [facility] Allergy [address] [place] [address],[place] [address] [place] [address] 07/14/2024 15:32:57 07/14/2024 15:50:58 Perennial allergic rhinitis [id number] J30.89 [id number] ELA RIVERA, [address] [facility] [place] [address] 07/22/2024 15:34:11 07/22/2024 15:44:23 Perennial allergic rhinitis [id number] J30.89 [id number] DIOGENES COLLIER MD [facility] of [address] [place] [address] 08/26/2024 15:27:05 08/26/2024 16:06:54 Allergic rhinitis 17046311 J30.89 Feeling of lump in throat 635169739 R09.89 Fiberoptic laryngosco py performed to evaluate her globus sensation. Fortunatel y it was benign. Discussed possible other causes including reflux as well as her poking her tonsil to extract tonsil stones. [id number] BRADLEY VERDE RN Allergy [address] [place] [address], [place] [address] 08/26/2024 15:28:55 08/26/2024 16:01:49 Perennial allergic rhinitis [id number] J30.89 [id number] EDITA AMADEO, [facility] Allergy [address] [place] [address] [facility] [place] [address] 09/10/2024 14:48:59 09/10/2024 15:30:20 Perennial allergic rhinitis [id number] J30.89 [id number] BRADLEY VERDE RN Allergy [address] [place] [address] [facility] [place] [address] 09/24/2024 13:06:16 09/24/2024 13:23:09 Perennial allergic rhinitis [id number] J30.89 [id number] BRADLEY VERDE RN Allergy [address] [place] [address], [place] [address] 10/07/2024 15:11:27 10/07/2024 15:26:03 Perennial allergic rhinitis [id number] J30.89 [id number] [facility] [facility] [address] [place] [address] [address] [facility] [address] 10/21/2024 14:58:43 10/21/2024 15:27:09 Perennial allergic rhinitis [id number] J30.89 Health Concerns Section Related Observation LastModified by Organization Detai ls LastModified Time None Recorded Concern Status LastModified by Organization Details LastModified Time None Recorded Advance Directives Directive None Recorded Payers Encounter Date Sequence Insurance Name Policy Number Policy Sampson Covered Member ID Sampson Member ID Guarantor Name 08/26/2024 1 [place] ([facility] [place]) [id number] Sangeeta L Mota [id number] Sangeeta Mota 09/10/2024 1 [place] [id number] Sangeeta L Mota [id number] Sangeeta Mota 09/24/2024 1 [place] [id number] Sangeeta L Mota [id number] Sangeeta Mtoa 10/07/2024 1 [place] [id number] Sangeeta L Mota [id number] Sangeeta Mota 10/21/2024 1 [place] [id number] Sangeeta L Mota [id number] Sangeeta Mota Notes Date Note Type Note Provider Name and Address Organization Details Recorded Time 08/26/2024 text/html [facility] 02/2019nodimitri armstrong as of todayepipenallergy sx under controlfew asthma flareups has upcoming apt with rheum in x of rash, significant rx change, stye in eye, fibromyalgia, ache, today with globusonset 3 weeksusing finger to extract a few tonsil stonesreflux on 40 omeprazole and TUMS for breakthrough DIOGENES COLLIER MD [address] [place] [address], [place], [address], [place] - [facility] 08/26/2024 16:07:45 OBGyn Episode No OBEpisode recorded.
== END 2024-11-10 12:16 | disposition home or self-care (01) ==
LOC: HO.RHES 10:55
PROVIDERS: PCP Internal Medicine; Visit Provider Internal Medicine Rheumatology
DX: R20.0 Anesthesia of skin (principal); R76.8 Other specified abnormal immunological findings in serum; M79.671 Pain in right foot
CPT/HCPCS: 99204

== ENCOUNTER → 2024-11-10 13:55 | Outpatient (BNV) | payer BC, SELFPAY | PROVIDERS: PCP Internal Medicine; Visit Provider Radiology Diagnostic Radiology | DX: M77.31 Calcaneal spur, right foot (principal) | CPT/HCPCS: 73630 ==

== ENCOUNTER 2025-01-12 14:22 | Outpatient (REF) | payer BC, SELFPAY ==
--- NOTE | 2025-01-12 14:25 | EMG_ITS ---
Chief complaint: Bilateral hand numbness Reason for referral: Evaluate for Carpal Tunnel Syndrome Referred by: Dr. Gates Procedure done: Bilateral upper extremities NCS/EMG Precautions and/or limitations: Previous cervical spine surgery - for this reason paraspinal EMG examination deferred, not reliable to show accurate diagnostic evidence evidence The limb temperature was monitored continuously and remained between 32-36 degrees C during the performance of the NCS. Nerve Conduction Studies Anti Sensory Summary Table ?Stim Site NR Onset (ms) Norm Onset (ms) Peak (ms) Norm Peak (ms) O-P Amp (?V) Norm O-P Amp Site1 Site2 Delta-0 (ms) Dist (cm) Azeem (m/s) Norm Azeem (m/s) Left Median Anti Sensory (2nd Digit) Wrist ? 3.4 4.4 <3.6 13.7 >10 Wrist 2nd Digit 3.4 14.0 41 Right Median Anti Sensory (2nd Digit) Wrist ? 3.9 4.8 <3.6 10.6 >10 Wrist 2nd Digit 3.9 14.0 36 Right Radial Anti Sensory (Thumb) Forearm ? 1.7 2.1 <3.1 18.6 Forearm Thumb 1.7 0.0 Left Ulnar Anti Sensory (5th Digit) Wrist ? 2.3 3.1 <3.7 18.2 >15.0 Wrist 5th Digit 2.3 14.0 61 Right Ulnar Anti Sensory (5th Digit) Wrist ? 0.9 3.4 <3.7 14.8 >15.0 Wrist 5th Digit 0.9 14.0 156 Motor Summary Table ?Stim Site NR Onset (ms) Norm Onset (ms) O-P Amp (mV) Norm O-P Amp iAmp (mV) Amp (1st) (%) Site1 Site2 Delta-0 (ms) Dist (cm) Azeem (m/s) Norm Azeem (m/s) Left Median Motor (Abd Poll Brev) Wrist ? 5.0 <3.9 8.8 >4.5 10.7 100.0 Elbow Wrist 4.1 18.5 45 >45 Elbow ? 9.1 7.6 9.3 86.4 Right Median Motor (Abd Poll Brev) Wrist ? 5.2 <3.9 8.2 >4.5 10.3 100.0 Elbow Wrist 3.8 17.0 45 >45 Elbow ? 9.0 8.0 10.1 97.6 Left Ulnar Motor (Abd Dig Minimi) Wrist ? 2.7 <3.0 8.9 >5 10.6 100.0 B Elbow Wrist 2.9 18.0 62 >45 B Elbow ? 5.6 9.1 10.7 102.2 A Elbow B Elbow 1.4 10.0 71 >45 A Elbow ? 7.0 7.7 9.2 86.5 Right Ulnar Motor (Abd Dig Minimi) Wrist ? 2.7 <3.0 9.0 >5 11.0 100.0 B Elbow Wrist 3.1 18.0 58 >45 B Elbow ? 5.8 8.3 10.5 92.2 A Elbow B Elbow 0.8 10.0 125 >45 A Elbow ? 6.6 8.7 11.4 96.7 EMG ?Side Muscle Nerve Root Ins Act Fibs Psw Amp Dur Poly Recrt Int Pat Comment Right 1stDorInt Ulnar C8-T1 Nml Nml Nml Nml Nml 0 Nml Complete Right FlexCarRad Median C6-7 Nml Nml Nml Nml Nml 0 Nml Complete Right Biceps Musculocut C5-6 Nml Nml Nml Nml Nml 0 Nml Complete Right Triceps Radial C6-7-8 Nml Nml Nml Nml Nml 0 Nml Complete Right Deltoid Axillary C5-6 Nml Nml Nml Nml Nml 0 Nml Complete Left FlexCarRad Median C6-7 Nml Nml Nml Nml Nml 0 Nml Complete Left Biceps Musculocut C5-6 Nml Nml Nml Nml Nml 0 Nml Complete Left Triceps Radial C6-7-8 Nml Nml Nml Nml Nml 0 Nml Complete Left Deltoid Axillary C5-6 Nml Nml Nml Nml Nml 0 Nml Complete Left FlexCarpiUln Ulnar C8,T1 Nml Nml Nml Nml Nml 0 Nml Complete FINDINGS: Bilateral median motor nerves showed prolonged distal latency, normal amplitude and normal conduction velocity. Bilateral median sensory nerves showed prolonged peak latency. All other nerves tested were within normal. Concentric needle EMG was performed in selected muscles of the bilateral upper extremities. Study did not reveal signs of electric abnormalities as shown in the table above. IMPRESSION: 1. This is an abnormal study. 2. There is electrodiagnostic evidence for bilateral moderate-severe median neuropathy at the wrist, consistent with carpal tunnel syndrome. 3. There is no electrodiagnostic evidence for ulnar neuropathy, brachial plexopathy, or cervical radiculopathy. Thank you for your kind referral. Marzena Doe MD, DIXIE Board Certified, [place] Board [employer] Physical Medicine and Rehabilitation (ABPMR) Board Certified, [place] Board of Electrodiagnostic Medicine (ABEM) CODIN [phone] MTDD
--- OUTSIDE RECORDS SUMMARY | 2025-01-12 16:27 | XMS_ITS | Data Portability ---
Author Organization [facility], Allergy Address [address] [facility] 100 [place] [address] Assessment Encounter Date Assessment Date Assessment LastModified by Organization Details LastModified Time 09/24/2024 09/24/2024 Visit With: NETTA Boswell Use of Antihistamine s: No If yes: Vial Test Change in medications: No If yes Increase in asthma symptoms No If yes, inhaler use: Reaction to last injections: No If yes: Allergy Symptoms: Other: Missed: Dose Aware of Vial Test Notes: [email or web address] Not available 09/24/2024 13:22:52 10/07/2024 10/07/2024 Visit With: NETTA Boswell Use of Antihistamine s: No If yes: Vial Test Change in medications: Yes If yes symbicort Increase in asthma symptoms No If yes, inhaler use: Reaction to last injections: No If yes: Allergy Symptoms: Other: Missed: Dose Aware of Vial Test Notes: [email or web address] Not available 10/07/2024 15:25:32 10/21/2024 10/21/2024 Visit With: NETTA Boswell Use of Antihistamine s: No If yes: Vial Test Change in medications: No If yes Increase in asthma symptoms If yes, inhaler use: Reaction to last injections: No If yes: Allergy Symptoms: Other: Missed: Dose Aware of Vial Test Notes:back to monthly [email or web address] Not available 10/21/2024 15:26:51 11/24/2024 11/24/2024 Visit With: NETTA Boswell Use of Antihistamine s: Yes If yes: Vial Test Change in medications: No If yes Increase in asthma symptoms If yes, inhaler use: Reaction to last injections: No If yes: Allergy Symptoms: Other: Missed: Dose Aware of Vial Test Yes Notes: [email or web address] Not available 11/24/2024 14:45:47 12/29/2024 12/29/2024 Visit With: NETTA Boswell Use of Antihistamine s: No If yes: Vial Test Yes Change in medications: No If yes Increase in asthma symptoms If yes, inhaler use: Reaction to last injections: No If yes: Allergy Symptoms: Other: Missed: Dose Aware of Vial Test Notes: [email or web address] Not available 12/29/2024 16:33:58 Plan of Treatment Reminders Order Date Submit Date Provider Last Modified By Organization Details Last Modified Time Details Appointments [facility]- Allergy f-up 6mon 2024 10:30A M DIOGENES COLLIER MD Not available Not [...] Organization Details Recorded Time Nasal congestio n 26409858 Active 2018 Nasal congestio n; Note: Date Diagnosed : 12/18/2018 9:40 AM (R09.81) Not Available [facility] 4 02:24:22 History of SARS-CoV- 2 [id number] Active 2022 Personal history of COVID-19; Note: Date Diagnosed : 08/23/2022 2:26 PM (Z86.16) Not Available [facility] 4 02:23:55 Deviated nasal septum 683251466 Active 2018 Deviated nasal septum; Note: Date Diagnosed : 12/18/2018 9:37 AM (J34.2) Not Available [facility] 4 02:23:47 Impacted cerumen in left ear [id number] 83242 Active 2020 Impacted cerumen, left ear; Note: Date Diagnosed : 08/16/2020 4:18 PM (H61.22) Not Available [facility] 4 02:23:57 Allergic rhinitis 38684557 Active 2023 Allergic rhinitis: Due to other allergen; Note: Date Diagnosed : 08/21/2023 4:00 PM (477.8) Note: Date Diagnosed : 08/21/2023 4:00 PM (477.8) Allergi c rhinitis: Due to other allergen; Note: Date Diagnosed : 08/08/2023 3:58 PM (477.8) Note: Date Diagnosed : 08/08/2023 3:58 PM (477.8) ; Start Date : Allergi c rhinitis: Due to other allergen; Note: Date Diagnosed : 3:41 PM (477.8) Note: Date Diagnosed : 3:41 PM (477.8) ; Start Date : Allergi c rhinitis: Due to other allergen; Note: Date Diagnosed : 3:53 PM (477.8) Note: Date Diagnosed : 3:53 PM (477.8) ; Start Date : Allergi c rhinitis: Due to other allergen; Note: Date Diagnosed : 07/11/2023 3:30 PM (477.8) Note: Date Diagnosed : 07/11/2023 3:30 PM (477.8) ; Start Date : Allergi c rhinitis: Due to other allergen; Note: Date Diagnosed : 3 4:08 PM (477.8) Note: Date Diagnosed : 3 4:08 PM (477.8) ; Start Date : Allergi c rhinitis: Due to other allergen; Note: Date Diagnosed : 3 3:51 PM (477.8) Note: Date Diagnosed : 3 3:51 PM (477.8) ; Start Date : Allergi [...] (477.8) Note: Date DIOGENES COLLIER MD [address] [address], [place], [address] , [facility] 4 13:58:13 Impacted cerumen in right ear [id number] 71863 Active 2019 Impacted cerumen, right ear; Note: Date Diagnosed : 02/15/2020 10:41 AM (H61.21) Not Available [facility] 4 02:23:50 Perennial allergic rhinitis 016020639 Active 2023 EDITA RIVER, RMA [address] [facility] [facility] [place] [facility], [place], [address] , [facility] - [facility] [place] 4 15:54:54 Feeling of lump in throat 296889893 Active 2024 DIOGENES COLLIER MD [address] [facility] [place] [address], [place], [address] , [facility] - [facility] [place] 5 16:07:00 Problem Notes None recorded. Procedures Surgical History Date Name Laterality Status Provider Name and Address Organization Details Recorded Time 12/30/19 25 Allergy Immunotherapy Injections completed EDITA RIVER RMA [address] [facility] [place] [facility], [place], [address], [facility] - [facility] [place] 12/29/2024 16:33:51 11/25/19 25 Allergy Immunotherapy Injections completed EDITA RIVER RMA [address] [facility] [facility] [place] [facility], [place], [address], [facility] - [facility] [place] 11/24/2024 14:45:39 10/22/19 25 Allergy Immunotherapy Injections completed EDITA RIVER RMA [address] [address] [facility] [facility] [place] [address] [place] [address], [phone], [facility] - [facility] [place] 10/21/2024 15:26:36 10/08/19 25 Allergy Immunotherapy Injections completed BRADLEY VERDE RN [address] [facility] [place],[address], [address], [facility] - [facility] [place] 10/07/2024 15:25:19 09/24/19 25 Allergy Immunotherapy Injections completed BRADLEY VERDE RN [address] [facility] [place] [address] [place] [address], [address], [facility] - [facility] [place] 09/24/2024 13:22:38 09/10/19 25 Allergy Immunotherapy Injections completed EDITA RIVER RMA [address],[place] [facility], [place], [address], [place] - [facility] [place] 09/10/2024 15:29:54 08/26/19 25 Allergy Immunotherapy Injections completed BRADLEY VERDE RN [address] [facility] [address],[place] [address] [place] [address], [address], [place] - [facility] [place] 08/26/2024 16:00:24 08/26/19 25 FOL_DP completed DIOGENES COLLIER MD [address] [facility] [address],[place] [address] [place] [address], [phone], [place] - [facility] [place] 08/26/2024 16:06:52 07/22/20 24 Allergy Immunotherapy Injections completed NETTA RAZO [address] [facility] [address],[place] [address] [place] [address], [address], [place] - [facility] [place] 07/22/2024 15:43:50 07/14/20 24 Allergy Immunotherapy Injections completed NETTA RAZO [address] [facility] [place],[address] [facility], [place], [address], [place] - [facility] [place] 07/14/2024 15:50:30 05/25/20 24 Allergy Immunotherapy Injections completed NETTA RAZO [address] [facility] [place] [address] [place] [address], [address], [place] - [facility] [place] 05/25/2024 16:20:23 04/21/20 24 Allergy Immunotherapy Injections completed BRADLEY VERDE RN 100 [facility],[address], [address], [place] - [facility] [place] 04/21/2024 16:01:19 03/23/20 24 Allergy Immunotherapy Injections completed EDITA RIVER RMMehul [address] [facility] [address],[place] [address] [place] [address], [address], [place] - [facility] [place] 03/23/2024 12:14:10 02/17/20 24 Allergy Immunotherapy Injections completed NETTA RAZO [address] [facility] [place] [address] [place] [address], [address], [place] - [facility] [place] 02/17/2024 14:42:06 01/15/20 24 Allergy Immunotherapy Injections completed EMMIE MCKEON, [facility] 100 [facility],[place] [address], [place], [address], [facility] 01/15/2024 15:52:48 01/02/20 24 Allergy Immunotherapy Injections completed EDITA CHILDS, RMA [address] [facility] [place] [address], [place], [address], [facility] 01/02/2024 15:15:36 12/19/19 [address] [facility], A 100 [facility], [place], [address], [facility] 12/19/2023 15:55:22 Imaging Results None recorded. Procedure Notes None recorded. Medical Equipment None Reported. Allergies Allergen ID Allergen Name Allergen Category Reaction Reaction Severity Criticality Documentation Date Start Date Code Code System Note Provider Name and Address Organization Details Recorded Time 08692 Latex (substanc e) environme nt,medica tion hives Not available Not available 12/16/2023 14716 8007 SNOMED React ion: skin rashe s, hives ;; Not Available [facility] 4 00:53:15 42953 Bactrim medicatio n other Not available Not available 12/16/2023 50183 9 RxNorm Jefry silva [facility] 5 15:49:33 Medications Name Sig Start Date Stop Date Status Note LastModified by Organization Details LastModified Time biotin 10 mg tablet 2019 active Medicati on ID: 137170 B rand Name: biotin S end Method: [...] as directed 01/29 completed Medicati on ID: 316857 D uration Value: 90 Reason: () Brand [...] topical cream 06/24 completed Medicati on ID: 116970 D uration Value: 15 Reason: () Brand Name: clobetas ol Send Method: E-Prescr ibed Sub s Allowed: subs OK Medic ationGen ericName : clobetas ol Not Available Not Available Not Available metronida zole 500 mg tablet 06/24 completed Medicati on ID: 027639 D uration Value: 10 Reason: () Brand Name: metronid azole Se nd Method: E-Prescr ibed Sub s Allowed: subs OK Medic ationGen ericName : metronid azole Not Available Not Available Not Available ciproflox acin 500 mg tablet 06/24 completed Medicati on ID: 364155 D uration Value: 10 Reason: () Brand Name: ciproflo xacin HCl Send Method: E-Prescr ibed Sub s Allowed: subs OK Medic ationGen ericName : ciproflo xacin HCl Not Available Not Available Not Available omeprazol e 40 mg capsule,d elayed release 2018 active Medicati on ID: 677075 D uration Value: 30 Brand Name: omeprazo [...] mg tablet 02/27 completed Medicati on ID: 761923 D uration Value: 30 Brand Name: fluoxeti [...] complex tablet 2019 active Medicati on ID: 232942 B rand Name: vitamin B complex Send Method: E-Prescr ibed Sub s Allowed: subs OK Medic ationGen ericName : vitamin B complex Not Available Not Available Not Available lorazepam 1 mg tablet 10/13 completed Medicati on ID: 126878 D uration Value: 2 Reason: () Brand Name: lorazepa m Send Method: E-Prescr ibed Sub s Allowed: subs OK Medic ationGen ericName : lorazepa m Not Available Not Available Not Available ibuprofen 600 mg tablet 08/26 completed Medicati on ID: 552410 D uration Value: 10 Brand Name: ibuprofe n Send Method: E-Prescr ibed Sub s Allowed: subs OK Medic ationGen ericName : ibuprofe n Not Available Not Available Not Available levofloxa sanket 500 mg tablet 01/29 completed Medicati on ID: 349191 D uration Value: 10 Reason: () Brand [...] mg capsule 08/26 completed Medicati on ID: 542722 B rand Name: fluoxeti ne Send Method: [...] xtended release 2019 active Medicati on ID: 727795 B rand Name: Vitamin C Send Method: E-Prescr ibed Sub s Allowed: subs OK Medic ationGen ericName : Vitamin C Not Available Not Available Not Available amlodipin e 10 mg-benaze pril 20 mg capsule Take 1 capsule every day by oral route. 08/26 completed Not Available Not Available Not Available Vitamin D3 25 mcg (1,000 unit) capsule 2019 active Medicati on ID: 727780 B rand Name: Vitamin D3 Send Method: [...] Available Sudafed 01/29 completed Medicati on ID: [id number] R lucien: () Brand Name: sudafed Send Method: E-Prescr ibed Sub s Allowed: subs OK Medic ationGen ericName : sudafed Not Available Not Available Not Available Alaway 0.025 % (0.035 %) eye drops 2018 active Medicati on ID: 257639 D uration Value: 30 Brand Name: Alaway S end Method: E-Prescr ibed Sub s Allowed: subs OK Speci al Instruct ion: INSTILL 1 DROP INTO BOTH EYES EVERY 12 HOURS FOR 10 DAYS(OTC -NOT CVD) Med icationG enericNa me: Alaway Not Available Not Available Not Available Symbicort 160 mcg-4.5 mcg/actua tion HFA aerosol inhaler 08/26 completed Medicati on ID: 166411 B rand Name: Symbicor t Send Method: [...] both nostrils 2019 active Medicati on ID: 924786 D uration Value: 30 Brand Name: Flonase [...] Disorder N Anesthesia Complications N Heart Attack ([place]) N Diabetes N Rhinitis Y Bleeding Disorder [...] Code Diagnosis ICD10 Code Diagnosis Note [id number] BRADLEY VERDE RN Allergy 100 [facility],[address] [place] [address] 12/19/2023 10:51:17 12/22/2023 15:26:17 Perennial allergic rhinitis [id number] J30.[address] [facility], RMA Allergy 100 [facility],[address] [place] [address] 01/02/2024 14:51:39 01/02/2024 15:24:27 Perennial allergic rhinitis 074170393 J30.89 [id number] DIOGENES COLLIER MD [facility] [place] [address] [facility] [place] [address] 01/15/2024 15:32:52 01/15/2024 16:22:02 Allergic rhinitis 88835382 J30.89 [id number] EMMIE MCKEON [facility] Allergy 100 [facility],[place] [address] [place] [address] 01/15/2024 15:31:10 01/15/2024 16:08:41 Perennial allergic rhinitis [id number] J30.[address] [facility], A Allergy 100 [facility],[address] [place] [address] 02/17/2024 13:35:57 02/18/2024 13:21:29 Perennial allergic rhinitis 959997410 J30.[id number] [facility], A Allergy 100 [facility],[place] [address] [place] [address] 03/23/2024 11:48:47 03/23/2024 13:20:26 Perennial allergic rhinitis 840267701 J30.89 [id number] EMMIE MCKEON A Allergy 100 [facility],[place] [place] [address] 04/21/2024 15:30:25 04/21/2024 16:01:44 Perennial allergic rhinitis 960682704 J30.89 [id number] EMMIE MCKEON A Allergy 100 [facility],[address] [address] [place] [address] 05/25/2024 14:53:58 05/25/2024 16:25:56 Perennial allergic rhinitis 373048552 J30.89 [id number] EMMIE MCKEON A Allergy 100 [facility],[address] [place] [address] 07/14/2024 15:32:57 07/14/2024 15:50:58 Perennial allergic rhinitis 776056363 J30.89 [id number] EMMIE MCKEON A Allergy 100 [facility],[address] [address] [place] [address] 07/22/2024 15:34:11 07/22/2024 15:44:23 Perennial allergic rhinitis 121696440 J30.89 [id number] DIOGENES COLLIER MD [facility] [place] 100 [facility] [place] [address] 08/26/2024 15:27:05 08/26/2024 16:06:54 Allergic rhinitis 31614259 J30.89 Feeling of lump in throat 665242385 R09.89 Fiberoptic laryngosco py performed to evaluate her globus sensation. Fortunatel y it was benign. Discussed possible other causes including reflux as well as her poking her tonsil to extract tonsil stones. [id number] EMMIE MCKEON A Allergy 100 [facility],[place] [place] [address] 08/26/2024 15:28:55 08/26/2024 16:01:49 Perennial allergic rhinitis 322959918 J30.89 [id number] EDITA CHILDS, A Allergy 100 [facility],[place] [place] [address] 09/10/2024 14:48:59 09/10/2024 15:30:20 Perennial allergic rhinitis [id number] J30.89 [id number] EDITA CHILDS, A Allergy 100 [facility],[place] [place] [address] 09/24/2024 13:06:16 09/24/2024 13:23:09 Perennial allergic rhinitis [id number] J30.89 [id number] EDITA CHILDS, A Allergy 100 [facility],[place] [address] [place] [address] 10/07/2024 15:11:27 10/07/2024 15:26:03 Perennial allergic rhinitis [id number] J30.89 [id number] EDITA CHILDS, RMA Allergy [address] [place] [address] 10/21/2024 14:58:43 10/21/2024 15:27:09 Perennial allergic rhinitis 893353031 J30.89 [id number] EDITA R[place], RMA Allergy [address] [place],[address] [place] [address] 11/24/2024 14:38:48 11/24/2024 14:46:01 Perennial allergic rhinitis 489621633 J30.89 [id number] EMMIE LINDA, A Allergy 100 [facility],[place] [place] [address] 12/29/2024 15:51:17 12/29/2024 16:34:12 Perennial allergic rhinitis 525200929 J30.89 Health Concerns Section Related Observation LastModified by Organization Detai ls LastModified Time None Recorded Concern Status LastModified by Organization Details LastModified Time None Recorded Advance Directives Directive None Recorded Payers Insurance Date Sequence Insurance Name Policy Number Policy Sampson Covered Member ID Sampson Member ID Guarantor Name 12/29/2024 1 [place] [facility] [id number] Sangeeta L Mota [id number] Sangeeta Mota 07/29/2024 1 [place] [facility] [id number] Sangeeta L Mota [id number] Sangeeta Mota OBGyn Episode No OBEpisode recorded.
== END 2025-01-12 14:23 | disposition home or self-care (01) ==
LOC: HO.NEURO 14:22
PROVIDERS: PCP Internal Medicine; Visit Provider Internal Medicine Rheumatology
DX: R20.0 Anesthesia of skin (principal)
CPT/HCPCS: 95886; 95911

== ENCOUNTER → 2025-01-12 14:25 | Outpatient (BNV) | payer BC, SELFPAY | PROVIDERS: PCP Internal Medicine; Visit Provider Physical Medicine & Rehabilitation | DX: G56.03 Carpal tunnel syndrome, bilateral upper limbs (principal) | CPT/HCPCS: 95886; 95911 ==

== ENCOUNTER 2025-01-13 08:19 | Outpatient (AMB) | payer BC, SELFPAY ==
[2025-01-13 08:21] VITALS: BP 130/82; PULSE 94; O2SAT 98; BMI 41.5
--- NOTE | 2025-01-13 08:21 | MHC.OFFVIS ---
Vital Signs 01/13/25 08:21 Height 5 ft 5.5 in Weight 253 lb 4 oz BMI 41.5 BP 130/82 Blood Pressure Location Lt brachial Position Sitting Pulse 94 Pulse Source Pulse Oximeter Pulse Oximetry (%) 98 Oxygen Delivery Method Room Air Intake Visit Reasons: 1-2 months Intake Note: Patient presents today for positive ravindra. Panel Raiser Operator Required: No Allergies No Known Allergies Allergy (Verified 01/13/25 08:21) HPI HPI 1-2 months: Details: She developed a new skin lesion right ear. She also has herpetic darrin affecting right hand. She is now on valacyclovir. We discussed workup. [facility] Medical History (Updated 01/13/25 @ 08:53 by Ector Gates MD) Herpetic darrin Sleep apnea Asthma Cervical myelopathy Spinal stenosis Fibromyalgia Fracture of left lower leg Positive RAVINDRA (antinuclear antibody) Surgical History H/O colectomy History of discectomy Physical Exam Vital Signs: BMI result Body Mass Index 41.5 Const Other: General: Comfortable Skin: Very slight erythema of face involving forehead, chin, cheeks, which does not spare nasolabial fold. She has an ulceration on right ear pinna MSK: No synovitis. Results Reviewed Results Reviewed: EMG of upper extremities 01/11/2025 FINDINGS: Bilateral median motor nerves showed prolonged distal latency, normal amplitude and normal conduction velocity. Bilateral median sensory nerves showed prolonged peak latency. All other nerves tested were within normal. Concentric needle EMG was performed in selected muscles of the bilateral upper extremities. Study did not reveal signs of electric abnormalities as shown in the table above. IMPRESSION: 1. This is an abnormal study. 2. There is electrodiagnostic evidence for bilateral moderate-severe median neuropathy at the wrist, consistent with carpal tunnel syndrome. 3. There is no electrodiagnostic evidence for ulnar neuropathy, brachial plexopathy, or cervical radiculopathy. Assessment & Plan Assessment & Plan (1) Bilateral hand numbness: Comment: Chronic. EMG of bilateral upper extremities confirm bilateral carpal tunnel syndrome. There is no evidence of cervical radiculopathy. Code(s): R20.0 - Anesthesia of skin Category: Medical Plan: Bilateral cock-up wrist braces prescribed to wear at night Return to clinic in 3 months (2) Positive RAVINDRA (antinuclear antibody): Comment: She presented with Low titer positive, fatigue, and sicca symptoms. She had a diffuse pruritic rash in June with improvement with using topical steroid but she continues to have erythematous lesions on her extremities of unclear etiology. Her rash does not represent classic cutaneous manifestation of connective tissue disease from reviewing photos of her rash and current presentation. Laboratory workup revealed negative disease specific markers and inflammatory markers. She has transaminitis on labs likely due to hepatic steatosis. At this time she does not meet criteria for Sjogren syndrome or systemic lupus erythematosus. Code(s): R76.8 - Other specified abnormal immunological findings in serum Category: Medical Plan: No further rheumatological workup is indicated at this time I recommend contacting PCP for dermatology referral for evaluation and management of her rash (3) Right foot pain: Comment: Affecting gait. Unremarkable exam. Unremarkable exam X-ray of right foot was unremarkable. Code(s): M79.671 - Pain in right foot Category: Medical Plan: PT for gait training ordered Return to clinic in 3 months Orders: Orders PT Evaluation and Treatment Today R26.81 - Unsteadiness on feet Medications: New arm brace (Wrist Brace) Wear at night Bilateral cockup wrist braces Dx: Carpal tunnel syndrome 2 ea 0RF arm brace (Wrist Brace) Wear at night Bilateral cockup wrist braces Dx: Carpal tunnel syndrome 2 ea 0RF Coding Level of Care Code Est Pt Level 4 (42187) Complex EM visit Add On G2211 Diagnoses Bilateral hand numbness R20.0 Positive RAVINDRA (antinuclear antibody) R76.8 Right foot pain M79.671 Time Spent (min) 20
== END 2025-01-13 08:53 | disposition home or self-care (01) ==
LOC: HO.RHES 08:20
PROVIDERS: PCP Internal Medicine; Visit Provider Internal Medicine Rheumatology
DX: R20.0 Anesthesia of skin (principal); R76.8 Other specified abnormal immunological findings in serum; M79.671 Pain in right foot
CPT/HCPCS: 99214

== ENCOUNTER → 2025-01-13 08:19 | Outpatient (BNVA) | payer BC, SELFPAY | PROVIDERS: PCP Internal Medicine; Visit Provider Internal Medicine Rheumatology ==

== ENCOUNTER 2025-04-19 13:58 | Outpatient (AMB) | payer BC, SELFPAY ==
[2025-04-19 14:03] VITALS: BP 120/80; PULSE 61; O2SAT 98; BMI 41.8
--- NOTE | 2025-04-19 14:03 | MHC.OFFVIS ---
Vital Signs 04/19/25 14:03 Height 5 ft 5.5 in Weight 255 lb 4.725 oz BMI 41.8 BP 120/80 Blood Pressure Location Lt brachial Position Sitting Pulse 61 Pulse Source Pulse Oximeter Pulse Oximetry (%) 98 Oxygen Delivery Method Room Air Intake Visit Reasons: 3 Months Intake Note: Patient presents today for positive ravindra. Accompanied by: Self / Same As Patient Allergies No Known Allergies Allergy (Verified 04/19/25 14:03) HPI HPI 3 Months: Details: She is unable to tolerate wearing wrist braces. At the end of the night she is taking the wrist braces off. She continues to have pain in her right foot. She has swelling in her right foot at the end of the day. Swelling subsides in the morning when she wakes up. Sometimes her right foot we will become white. [facility] Medical History Herpetic darrin Sleep apnea Asthma Cervical myelopathy Spinal stenosis Fibromyalgia Fracture of left lower leg Positive RAVINDRA (antinuclear antibody) Surgical History H/O colectomy History of discectomy Physical Exam Vital Signs: Last Vital Signs Pulse 61 04/19/25 14:03 BP 120/80 04/19/25 14:03 Pulse Ox 98 04/19/25 14:03 Oxygen Delivery Method Room Air 04/19/25 14:03 BMI result Body Mass Index 41.8 Const Other: General: Comfortable MSK: No synovitis. No tenderness of joints in her hands or feet. She has dorsal edema right midfoot, which is shoe her line. No synovitis. Assessment & Plan Assessment & Plan (1) Bilateral hand numbness: Comment: Chronic. EMG of bilateral upper extremities confirm bilateral carpal tunnel syndrome. She is unable to tolerate wearing wrist braces at night. Code(s): R20.0 - Anesthesia of skin Category: Medical Plan: I recommend that she return to medical supply store where she received her wrist braces for readjustment Return to clinic in 2 weeks for treatment of bilateral carpal tunnel syndrome (2) Right foot pain: Comment: Affecting gait. She has right midfoot dorsal edema. X-ray of right foot was unremarkable. We discussed conservative management of foot edema. Code(s): M79.671 - Pain in right foot Category: Medical Plan: PT for gait training reordered Wear compression stockings. Elevate legs when sitting for prolonged period of time Coding Level of Care Code Est Pt Level 3 (63362) Complex EM visit Add On G2211 Diagnoses Bilateral hand numbness R20.0 Right foot pain M79.671
--- OUTSIDE RECORDS SUMMARY | 2025-04-19 17:47 | XMS_ITS ---
Author Name [facility] Organization Unknown History of Medication Use Medication Directions Dispensed Refills Start Date End Date Stat us nitrofurantoin, macrocrystal-monohydr ate, (MACROBID) 100 MG capsule Take 1 capsule (100 mg total) by mouth every 12 (twelve) hours for 5 days 12/22/2024 12/28/2024 active albuterol (PROAIR HFA) 90 mcg/actuation inhaler Inhale 09/16/2023 active DULoxetine (CYMBALTA) 20 MG capsule TAKE 1 CAPSULE BY MOUTH EVERY DAY 07/21/2023 active cholecalciferol, vitamin D3, (VITAMIN D3) 25 mcg (1,000 unit) capsule Take 1,000 Int'l Units by mouth 06/11/2019 12/22/2024 aborted omeprazole (PriLOSEC) 40 MG capsule Take 1 capsule (40 mg total) by mouth 03/05/2019 active cyanocobalamin 1000 MCG tablet Take 100 mcg by mouth daily. 12/22/2024 aborted DULCOLAX, BISACODYL, ORAL Take by mouth 12/22/2024 aborted multivitamin capsule Take 1 capsule by mouth daily 12/22/2024 aborted amLODIPine-benazepril (LOTREL 5-10) 5-10 mg capsule TAKE 1 CAPSULE BY MOUTH EVERY DAY active ascorbic acid, vitamin C, (VITAMIN C) 1000 MG tablet Take 1 tablet (1,000 mg total) by mouth daily active budesonide-formoteroL (SYMBICORT) 160-4.5 mcg/actuation inhaler Inhale 2 puffs 2 (two) times a day active fluticasone propionate (FLONASE) 50 mcg/actuation nasal spray Instill 1 spray into each nostril daily active Allergies Allergen Reaction Severity Comment Documented Date Source Statu s LATEX, NATURAL RUBBER RASH 08/28/2021 [facility] active Problems Problem Status Onset Date Problem Type Date of Resolution Source Frequency of urination active EncounterDiagnosisAct [facility] Hematuria, microscopic active EncounterDiagnosisAct [facility] Elevated blood-pressure reading without diagnosis of hypertension active EncounterDiagnosisAct [facility] Dysuria active EncounterDiagnosisAct [facility] Encounters Encounter Type Encounter Reason Primary Diagnosis Location Date Ambulatory or Rectal Frequency of micturition [facility] 12/22/2024 Care Team Organization Name Specialty Phone Email Start Date End [facility] te [facility] 12/23/2024 [facility]
== END 2025-04-19 14:45 | disposition home or self-care (01) ==
LOC: HO.RHES 13:59
PROVIDERS: PCP Internal Medicine; Visit Provider Internal Medicine Rheumatology
DX: R20.0 Anesthesia of skin (principal); M79.671 Pain in right foot
CPT/HCPCS: 99213

== ENCOUNTER 2025-05-05 14:51 | Outpatient (AMB) | payer BC, SELFPAY ==
[2025-05-05 14:56] VITALS: BP 130/80; PULSE 90; O2SAT 96; BMI 41.1
--- NOTE | 2025-05-05 14:56 | MHC.OFFVIS ---
Vital Signs 05/05/25 14:56 Height 5 ft 5.5 in Weight 250 lb 14.177 oz BMI 41.1 BP 130/80 Blood Pressure Location Lt brachial Position Sitting Pulse 90 Pulse Source Pulse Oximeter Pulse Oximetry (%) 96 Oxygen Delivery Method Room Air Intake Visit Reasons: Per MD/ Follow up Intake Note: Patient presents today for positive ravindra. Accompanied by: Self / Same As Patient Allergies No Known Allergies Allergy (Verified 05/05/25 14:57) HPI HPI Per MD/ Follow up: Details: She was unable to change readjust her wrist braces. Since April she has been moving classes. [facility] Medical History Herpetic darrin Sleep apnea Asthma Cervical myelopathy Spinal stenosis Fibromyalgia Fracture of left lower leg Positive RAVINDRA (antinuclear antibody) Surgical History H/O colectomy History of discectomy Physical Exam Vital Signs: Last Vital Signs Pulse 90 05/05/25 14:56 BP 130/80 05/05/25 14:56 Pulse Ox 96 05/05/25 14:56 Oxygen Delivery Method Room Air 05/05/25 14:56 BMI result Body Mass Index 41.1 Const Other: General: Comfortable MSK: No synovitis. No tenderness of joints in her hands. . Office Procedures AMB Joint Injection/Aspiration Joint Injection/Aspiration Details: Bilateral carpal tunnel Prep: site was prepped using aseptic technique Injected into each site: 20 mg of, Kenalog, with 0.5 mL of and 1% plain lidocaine Procedure: Informed verbal consent was obtained. The patient tolerated the procedure well. Postprocedure protocol was discussed with patient. Coding Additional procedure code (CPT) needed (CPT 26666 bilateral) AMB Joint Injection/Aspiration Coding Additional procedure code (CPT) needed (CPT code 37956 bilateral) Office Meds lidocaine (PF) 10 mg/mL (1 %) injection solution Performing Provider: Ector Gates MD Performing Location: [facility] Administered by: Farida Pete RN on 05/05/25 15:08 Dose Route Admin Location Dispensed Lot Number Expiration Date [facility] [employer] 0.5 mL Infiltration 2 mL [id number] 01/01/27 19512-996-50 [employer] Total Dispensed Waste 2 mL 75 % Kenalog 40 mg/mL suspension for injection Performing Provider: Ector Gates MD Performing Location: [facility] Administered by: Farida Pete RN on 05/05/25 15:08 Dose Route Admin Location Dispensed Lot Number Expiration Date [facility] [employer] 20 mg intra-articular 1 mL [id number] 01/31/27 [address]-9 [employer] Total Dispensed Waste 1 mL 50 % lidocaine (PF) 10 mg/mL (1 %) injection solution Performing Provider: Ector Gates MD Performing Location: [facility] Administered by: Farida Pete RN on 05/05/25 15:08 Dose Route Admin Location Dispensed Lot Number Expiration Date [facility] [employer] 0.5 mL Infiltration 2 mL [id number] 01/01/27 21361-818-98 [employer] Total Dispensed Waste 2 mL 75 % Kenalog 40 mg/mL suspension for injection Performing Provider: Ector Gates MD Performing Location: [facility] Administered by: Farida Pete RN on 05/05/25 15:08 Dose Route Admin Location Dispensed Lot Number Expiration Date [facility] [employer] 20 mg intra-articular 1 mL [id number] 01/31/27 [address]-2 [employer] Total Dispensed Waste 1 mL 50 % Assessment & Plan Assessment & Plan (1) Bilateral carpal tunnel syndrome: Code(s): G56.03 - Carpal tunnel syndrome, bilateral upper limbs Category: Medical Plan: Patient received cortisone injection to treat bilateral carpal tunnel syndrome Letter to excuse her from work until tomorrow given to patient Return to clinic in 3 months Orders: Orders AMB Joint Injection/Aspiration Today R20.0 - Anesthesia of skin AMB Joint Injection/Aspiration Today R20.0 - Anesthesia of skin Coding Level of Care Code Est Pt Level 3 (37621) Complex EM visit Add On G2211 Diagnoses Bilateral carpal tunnel syndrome G56.03
--- OUTSIDE RECORDS SUMMARY | 2025-05-05 16:20 | XMS_ITS | Data Portability ---
Author Organization [place] - [facility], Allergy Address [address] [address] Care Team Providers Care Dramatic Reader Name Role Phone GORDON SANCHEZ Primary Care Provider Assessment Encounter Date Assessment Date Assessment LastModified by Organization Details LastModified Time 11/24/2024 11/24/2024 Visit With: NETTA Boswell Use of Antihistamines: Yes If yes: Vial Test Change in medications: No If yes Increase in asthma symptoms If yes, inhaler use: Reaction to last injections: No If yes: Allergy Symptoms: Other: Missed: Dose Aware of Vial Test Yes Notes: [email or web address] Not available 11/24/2024 14:45:47 12/29/2024 12/29/2024 Visit With: NETTA Boswell Use of Antihistamines: No If yes: Vial Test Yes Change in medications: No If yes Increase in asthma symptoms If yes, inhaler use: Reaction to last injections: No If yes: Allergy Symptoms: Other: Missed: Dose Aware of Vial Test Notes: [email or web address] Not available 12/29/2024 16:33:58 01/28/2025 01/28/2025 Visit With: Ela Rivera Use of Antihistamines: No If yes: Vial Test Change in medications: No If yes Increase in asthma symptoms If yes, inhaler use: Reaction to last injections: No If yes: Allergy Symptoms: Other: Missed: Dose Aware of Vial Test Aware: Notes: [email or web address] Not available 01/28/2025 14:52:27 03/01/2025 03/01/2025 Patient is doing well on immunotherapy program. They have completed a year of monthly treatment and now are finished with our allergy program. [email or web address] Not available 03/01/2025 11:03:44 03/01/2025 03/01/2025 Visit With: NETTA Boswell Use of Antihistamines: Yes If yes: Vial Test Change in medications: Yes If yes losartan Increase in asthma symptoms If yes, inhaler use: Reaction to last injections: No If yes: Allergy Symptoms: Other: Missed: Dose Aware of Vial Test Aware: Notes:PT d/c from allergy due to completion of treatment [email or web address] Not available 03/01/2025 11:09:08 Plan of Treatment Reminders Order Date Submit Date Provider Last Modified By Organization Details Last Modified Time Details Appointments None record ed. Lab None record ed. Referral None record ed. Procedures None record ed. Surgeries None record ed. Imaging None record ed. Medication Orders None record ed. Patient TargetsNo targets recorded. Patient InstructionsNo instructions recorded. Reason for Referral None Reported. Problems Name Problem SNOMED Code Status Onset Date Resolution Date Notes Provider Name and Address Organization Details Recorded Time Nasal congestio n 48241401 Active 2018 Nasal congestio n; Note: Date Diagnosed : 12/18/2018 9:40 AM (R09.81) Not Available [facility] 4 02:24:22 Deviated nasal septum 446797494 Active 2018 Deviated nasal septum; Note: Date Diagnosed : 12/18/2018 9:37 AM (J34.2) Not Available [facility] 4 02:23:47 Impacted cerumen in right ear [id number] 02658 Active 2019 Impacted cerumen, right ear; Note: Date Diagnosed : 02/15/2020 10:41 AM (H61.21) Not Available [facility] 4 02:23:50 Impacted cerumen in left ear [id number] 99980 Active 2020 Impacted cerumen, left ear; Note: Date Diagnosed : 08/16/2020 4:18 PM (H61.22) Not Available [facility] 4 02:23:57 History of SARS-CoV- 2 [id number] 3073826 Active 2022 Personal history of COVID-19; Note: Date Diagnosed : 08/23/2022 2:26 PM (Z86.16) Not Available [facility] 02:23:55 Allergic rhinitis 63213929 Active 2023 Allergic rhinitis: Due to other [...] PM (477.8) Note: Date DIOGENES COLLIER MD [address] [place], [place] [address] [place], [place], [address] , [facility] - [facility] 4 13:58:13 Perennial allergic rhinitis 051862785 Active 2023 EDITA CHILDSDayanara, RMA [address], [place], [address] , [facility] - [facility] 4 15:54:54 Feeling of lump in throat 596021958 Active 2024 DIOGENES COLLIER MD [address], [place], [address] , [facility] - [facility] 16:07:00 Problem Notes None recorded. Procedures Surgical History Date Name Laterality Status Provider Name and Address Organization Details Recorded Time 03/01/20 25 Allergy Immunotherapy Injections completed EDITA MONTANALANDON, RMA 100 [facility] [place] [facility], [place], [address], [facility] - [facility] 03/01/2025 11:08:43 01/29/20 25 Allergy Immunotherapy Injections completed ELA RIVERA [facility] 100 [facility] [address],[place] [facility], [place], [address], [facility] - [facility] 01/28/2025 14:52:19 12/30/19 25 Allergy Immunotherapy Injections completed EDITA MONTANALANDON, RMA [address] [facility] [address],[place] [facility], [place], [address], [facility] - [facility] 12/29/2024 16:33:51 11/25/19 25 Allergy Immunotherapy Injections completed EDITA MONTANADOROTEO, RMA [address] [facility] [address], [place], [address], [facility] - [facility] 11/24/2024 14:45:39 10/22/19 25 Allergy Immunotherapy Injections completed EDITA CHILDS, RMA [address] [facility] [address] [address],[place] [facility], [place], [address], [facility] - [facility] 10/21/2024 15:26:36 10/08/19 25 Allergy Immunotherapy Injections completed BRADLEY VERDE RN [address], [place], [address], [place] - [facility] 10/07/2024 15:25:19 09/24/19 25 Allergy Immunotherapy Injections completed BRADLEY VERDE RN 100 [facility] [place] [place] [address], [address], [place] - [facility] 09/24/2024 13:22:38 09/10/19 25 Allergy Immunotherapy Injections completed EDITA RIVER RMA [address],[place] [address] [place] [address], [address], [place] - [facility] 09/10/2024 15:29:54 08/26/19 25 Allergy Immunotherapy Injections completed BRADLEY VERDE RN 100 [facility] [place] [address] [place] [address], [address], [place] - [facility] 08/26/2024 16:00:24 08/26/19 25 FOL_DP completed DIOGENES COLLIER MD 100 [facility],[address], [address], [place] - [facility] 08/26/2024 16:06:52 07/22/20 24 Allergy Immunotherapy Injections completed NETTA RAZO [address] [facility] [address],[place] [address] [place] [address], [address], [place] - [facility] 07/22/2024 15:43:50 07/14/20 24 Allergy Immunotherapy Injections completed NETTA RAZO [address] [facility] [address],[place] [place] [address], [address], [place] [facility] 07/14/2024 15:50:30 05/25/20 24 Allergy Immunotherapy Injections completed NETTA RAZO [address] [facility] [address],[place] [address] [place] [address], [address], [place] [facility] 05/25/2024 16:20:23 04/21/20 24 Allergy Immunotherapy Injections completed BRADLEY VERDE RN 100 [facility] [place] [place] [address], [address], [place] [facility] 04/21/2024 16:01:19 03/23/20 24 Allergy Immunotherapy Injections completed EDITA RIVER RMA [address] [facility] [address],[place] [place] [address], [address], [place] [facility] 03/23/2024 12:14:10 02/17/20 24 Allergy Immunotherapy Injections completed ELAMehul RIVERA [facility] 100 [facility],[address], [address], [facility] - [facility] 02/17/2024 14:42:06 01/15/20 24 Allergy Immunotherapy Injections completed ELAETHAN RIVERA [facility] 100 [facility],[address], [address], [facility] - [facility] 01/15/2024 15:52:48 01/02/20 24 Allergy Immunotherapy Injections completed EDITA AMADEO, [facility] 100 [facility] [place],[address], [address], [facility] 01/02/2024 15:15:36 12/19/19 24 Allergy Immunotherapy Injections completed EDITA AMADEO, [facility] 100 [facility],[address], [address], [facility] 12/19/2023 15:55:22 Imaging Results None recorded. Procedure Notes None recorded. Medical Equipment None Reported. Allergies Allergen ID Allergen Name Allergen Category Reaction Reaction Severity Criticality Documentation Date Start Date Code Code System Note Provider Name and Address Organization Details Recorded Time 13345 Latex (substanc e) environme nt,medica tion hives Not available Not available 12/16/2023 72162 8007 SNOMED React ion: skin rashe s, hives ;; Not Available [facility] 4 00:53:15 27540 Bactrim medicatio n other Not available Not available 12/16/2023 57614 9 RxNorm Jefry silva [facility] 5 15:49:33 Medications Name Sig Start Date Stop Date Status Note LastModified by Organization Details LastModified Time biotin 10 mg tablet 2019 active Medicati on ID: [id number] B rand Name: biotin S end Method: E-Prescr ibed Sub s Allowed: subs OK Medic ationGen ericName : biotin Not Available Not Available Not Available azithromy sanket 250 mg tablet TAKE 2 TABS ON DAY 1 THEN 1 TAB FOR 5 DAYS. START IN 4-5 DAYS IF CXR IS NEGATIVE FOR PNEUMONI A. 02/26 completed Not Available Not Available Not Available valacyclo vir 1 gram tablet TAKE 1 TABLET BY MOUTH 3 TIMES A DAY FOR 10 DAYS active Not Available Not Available No t Available Claritin 10 mg tablet Take 1 tablet by mouth once a day as directed 01/29 completed Medicati on ID: [id number] D uration Value: 90 Reason: () Brand Name: Claritin Send Method: E-Prescr ibed Sub s Allowed: subs OK Speci al Instruct ion: take 1 tablet by mouth once daily Me dication GenericN cecily: Claritin Not Available Not Available Not Available metronida zole 0.75 % (37.5 mg/5 gram) vaginal gel 1 APPLICAT OR VAGINALL Y DAILY AT BEDTIME, X5 DAYS 03/01 completed Not Available Not Available Not Available prednison e 20 mg tablet TAKE 2 TABLETS BY MOUTH EVERY DAY FOR 5 DAYS 08/26 completed Not Available Not Available Not Available amlodipin e 2.5 mg-benaze pril 10 mg capsule TAKE 1 CAPSULE BY MOUTH EVERY DAY 03/01 completed Not Available Not Available Not Available clobetaso l 0.05 % topical cream 06/24 completed Medicati on ID: [id number] D uration Value: 15 Reason: () Brand Name: clobetas ol Send Method: E-Prescr ibed Sub s Allowed: subs OK Medic ationGen ericName : clobetas ol Not Available Not Available Not Available metronida zole 500 mg tablet 06/24 completed Medicati on ID: [id number] D uration Value: 10 Reason: () Brand Name: metronid azole Se nd Method: E-Prescr ibed Sub s Allowed: subs OK Medic ationGen ericName : metronid azole Not Available Not Available Not Available ciproflox acin 500 mg tablet 06/24 completed Medicati on ID: [id number] D uration Value: 10 Reason: () Brand Name: ciproflo xacin HCl Send Method: E-Prescr ibed Sub s Allowed: subs OK Medic ationGen ericName : ciproflo xacin HCl Not Available Not Available Not Available omeprazol e 40 mg capsule,d elayed release 03/01 completed Medicati on ID: [id number] D uration Value: 30 Brand Name: omeprazo [...] Available Not Available Not Available amlodipin e 5 mg-benaze pril 10 mg capsule TAKE 1 CAPSULE BY MOUTH EVERY DAY 03/01 completed Not Available Not Available Not Available erythromy sanket 5 mg/gram (0.5 %) eye ointment ADMINIST ER TO THE RIGHT EYE 4 TIMES A DAY FOR 7 DAYS. 08/26 completed Not Available Not Available Not Available fluoxetin e 20 mg tablet 02/27 completed Medicati on ID: [id number] D uration Value: 30 Brand Name: fluoxeti ne Send Method: E-Prescr ibed Sub s Allowed: subs OK Medic ationGen ericName : fluoxeti ne Not Available Not Available Not Available prednison e 50 mg tablet TAKE 1 TABLET BY MOUTH EVERY DAY FOR 5 DAYS 03/01 completed Not Available Not Available Not Available diclofena c sodium 75 mg tablet,de layed release TAKE 1 TABLET BY MOUTH TWICE A DAY FOR 14 DAYS active Not Available Not Available No t Available vitamin B complex tablet 2019 active Medicati on ID: [id number] B rand Name: vitamin B complex Send Method: E-Prescr ibed Sub s Allowed: subs OK Medic ationGen ericName : vitamin B complex Not Available Not Available Not Available lorazepam 1 mg tablet 10/13 completed Medicati on ID: [id number] D uration Value: 2 Reason: () Brand Name: lorazepa m Send Method: E-Prescr ibed Sub s Allowed: subs OK Medic ationGen ericName : lorazepa m Not Available Not Available Not Available ibuprofen 600 mg tablet 08/26 completed Medicati on ID: [id number] D uration Value: 10 Brand Name: ibuprofe n Send Method: E-Prescr ibed Sub s Allowed: subs OK Medic ationGen ericName : ibuprofe n Not Available Not Available Not Available levofloxa sanket 500 mg tablet 01/29 completed Medicati on ID: [id number] D uration Value: 10 Reason: () Brand [...] mg capsule 08/26 completed Medicati on ID: [id number] B rand Name: fluoxeti ne Send Method: E-Prescr ibed Sub s Allowed: subs OK Medic ationGen ericName : fluoxeti ne Not Available Not Available Not Available ipratropi um bromide 21 mcg (0.03 %) nasal spray INSTILL 2 SPRAYS IN BOTH NARES 2 TIMES A DAY active Not Available Not Available No t Available amoxicill in 875 mg-potass ium clavulana te 125 mg tablet TAKE 1 TABLET BY MOUTH TWICE A DAY FOR 10 DAYS 03/01 completed Not Available Not Available Not Available Vitamin C 500 mg capsule,e xtended release 2019 active Medicati on ID: [id number] B rand Name: Vitamin C Send Method: E-Prescr ibed Sub s Allowed: subs OK Medic ationGen ericName : Vitamin C Not Available Not Available Not Available amlodipin e 10 mg-benaze pril 20 mg capsule Take 1 capsule every day by oral route. 08/26 completed Not Available Not Available Not Available Vitamin D3 25 mcg (1,000 unit) capsule 2019 active Medicati on ID: [id number] B rand Name: Vitamin D3 Send Method: E-Prescr ibed Sub s Allowed: subs OK Medic ationGen ericName : Vitamin D3 Not Available Not Available Not Available nitrofura ntoin monohydra te/macroc rystals 100 mg capsule TAKE 1 CAPSULE (100 MG TOTAL) BY MOUTH EVERY 12 (TWELVE) HOURS FOR 5 DAYS. 02/26 completed Not Available Not Available Not Available duloxetin e 20 mg capsule,d elayed release TAKE 1 CAPSULE BY MOUTH EVERY DAY 03/01 completed Not Available Not Available Not Available duloxetin e 30 mg capsule,d elayed release TAKE 1 CAPSULE BY MOUTH EVERY DAY active Not Available Not Available No t Available Sudafed 01/29 completed Medicati on ID: [id number] R lucien: () Brand Name: sudafed Send Method: E-Prescr ibed Sub s Allowed: subs OK Medic ationGen ericName : sudafed Not Available Not Available Not Available losartan active Not Available Not Avai lable Not Available Alaway 0.025 % (0.035 %) eye drops 03/01 completed Medicati on ID: [id number] D uration Value: 30 Brand Name: Helen S end Method: E-Prescr ibed Sub s Allowed: subs OK Speci al Instruct ion: INSTILL 1 DROP INTO BOTH EYES EVERY 12 HOURS FOR 10 DAYS(OTC -NOT CVD) Med icationG enericNa me: Alaway Not Available Not Available Not Available budesonid e-formote rol HFA 160 mcg-4.5 mcg/actua tion aerosol inhaler INHALE 2 PUFFS 2 TIMES A DAY,INST R:RINSE MOUTH AND THROAT AFTER USE active Not Available Not Available No t Available Symbicort active Not Available Not Olive ilable Not Available OptiChamb er Drea [facility] with Large Mask TO BE USED WITH MDI DIRECTED . ICD-10 J45.909 active Not Available Not Available No t Available EpiPen 2-Rodo 0.3 mg/0.3 mL injection , auto-inje ctor Take 1 auto as needed by injectio n route for 1 day, for anaphyla xis. 2023 active Not Available Not Available Not Avai lable Flonase Allergy Relief 50 mcg/actua tion nasal spray,elise pension 1 puff into both nostrils 2019 active Medicati on ID: [id number] D uration Value: 30 Brand Name: Flonase Allergy Relief S end Method: E-Prescr ibed Sub s Allowed: subs OK Medic ationGen ericName : Flonase Allergy Relief Not Available Not Available Not Available duloxetin e 40 mg capsule,d elayed release TAKE 1 CAPSULE BY MOUTH EVERY DAY , DO NOT CRUSH OR CHEW active Not Available Not Available No t Available Wixela Inhub 500 mcg-50 mcg/dose powder for inhalatio n INHALE 1 PUFF BY MOUTH TWICE A DAY. RINSE MOUTH AND THROAT AFTER USE active Not Available Not Available No t Available Vitals Date Recorded Body weight Provider Name an d Address Organization Details Last Updated DateTime 03/01/2025 163019.42 g ISMAEL VARMA [place] - [facility] 03/01/2025 10:43:56 Social History None recorded. Functional Status None recorded. Mental Status None recorded. Family History Nothing Reported. Medical History Condition Response Allergies/Hayfever Y Heart Problems N Anxiety Y Tonsil Infections N Emphysema N Thyroid Problems N Glaucoma N Developmental Delay N Depression Y COPD N Nasal or Sinus Problems Y Anemia N Immune System Disorder N Anesthesia Complications N Heart Attack ([place]) N Diabetes N Rhinitis Y Bleeding Disorder N Food Allergy N Hearing Loss N Arthritis N Hyperlipidemia N Cancer N Dementia N Nasal polyps N Asthma Y Sleep Disorder N High Cholesterol N GERD/Reflux Y Liver Disease Y Headaches Y Fibromyalgia Y Hypertension Y Speech Delay N Kidney Disease N Gynecological HistoryNo gynecological history recorded. Obstetrics History GPAL:G 0 P 0 0 0 0 Past Encounters Encounter ID Performer Location Encounter Start Date Encounter Closed Date Diagnosis/Indication Diagnosis SNOMED-CT Code Diagnosis ICD10 Code Diagnosis IMO Codes Diagnosis Note [id number] BRADLEY VERDE RN Allergy 100 [facility] [place] [address] [place] [address] 12/19/2023 10:51:17 12/22/2023 15:26:17 Perennial allergic rhinitis 530022317 J30.89 [id number] EDITA CHILDS, A Allergy 100 [facility] [place] [address] [place] [address] 01/02/2024 14:51:39 01/02/2024 15:24:27 Perennial allergic rhinitis 970108492 J30.89 [id number] DIOGENES COLLIER MD [facility] 100 [facility] [place] [address] 01/15/2024 15:32:52 01/15/2024 16:22:02 Allergic rhinitis 84529706 J30.89 [id number] ELA RIVERA A Allergy [address] [place] [address] 100 [place] [address] 01/15/2024 15:31:10 01/15/2024 16:08:41 Perennial allergic rhinitis 492563661 J30.89 [id number] [facility], A Allergy [address] [place] [address] 100 [place] [address] 02/17/2024 13:35:57 02/18/2024 13:21:29 Perennial allergic rhinitis 707407384 J30.89 [id number] [facility], A Allergy [address] [place] [address] 100 [place] [address] 03/23/2024 11:48:47 03/23/2024 13:20:26 Perennial allergic rhinitis 678473358 J30.89 [id number] ELA RIVERA [facility] Allergy [address] [place] [address] 100 [place] [address] 04/21/2024 15:30:25 04/21/2024 16:01:44 Perennial allergic rhinitis 049482883 J30.89 [id number] ELA RIVERA [facility] Allergy [address] [place], [place] [address] 100 [place] [address] 05/25/2024 14:53:58 05/25/2024 16:25:56 Perennial allergic rhinitis 314060393 J30.89 [id number] ELA RIVERA [facility] Allergy [address] [place] [address] ite 100 [place] [address] 07/14/2024 15:32:57 07/14/2024 15:50:58 Perennial allergic rhinitis 478622313 J30.89 [id number] ELA RIVERA [facility] Allergy [address] [place] [address] 100 [place] [address] 07/22/2024 15:34:11 07/22/2024 15:44:23 Perennial allergic rhinitis 527812756 J30.89 [id number] DIOGENES COLLIER MD [facility] [address] [place] [address] 08/26/2024 15:27:05 08/26/2024 16:06:54 Allergic rhinitis 45110708 J30.89 Feeling of lump in throat 571730793 R09.89 Fiberoptic laryngosco py performed to evaluate her globus sensation. Fortunatel y it was benign. Discussed possible other causes including reflux as well as her poking her tonsil to extract tonsil stones. [id number] ELA RIVERA, [address] 100 [place] [address] 08/26/2024 15:28:55 08/26/2024 16:01:49 Perennial allergic rhinitis [id number] J30.89 [id number] [facility] AMADEO, [facility] Allergy [address] [place] [address], [place] [address] 09/10/2024 14:48:59 09/10/2024 15:30:20 Perennial allergic rhinitis [id number] J30.89 [id number] [facility] AMADEO, [facility] Allergy [address] [place] [address], [place] [address] 09/24/2024 13:06:16 09/24/2024 13:23:09 Perennial allergic rhinitis 348062501 J30.89 [id number] [facility] All[facility] [address] [place] [address], [place] [address] 10/07/2024 15:11:27 10/07/2024 15:26:03 Perennial allergic rhinitis [id number] J30.89 [id number] [facility] AMADEO, [facility] Allergy [address] [place], [place] [address] 100 [place] [address] 10/21/2024 14:58:43 10/21/2024 15:27:09 Perennial allergic rhinitis 404281732 J30.89 [id number] [facility], [facility] Allergy [address] [place] [address] ite 100 [place] [address] 11/24/2024 14:38:48 11/24/2024 14:46:01 Perennial allergic rhinitis 347736740 J30.89 [id number] ELA LINDA, [facility] Allergy 100 [facility],[place] [address] 100 [place] [address] 12/29/2024 15:51:17 12/29/2024 16:34:12 Perennial allergic rhinitis [id number] J30.89 [id number] ELA RIVERA [facility] Allergy 100 [facility] 100 [place] [address] 01/28/2025 14:26:55 01/28/2025 14:52:47 Perennial allergic rhinitis [id number] J30.89 [id number] DIOGENES COLLIER MD [facility] 100 [facility] [place] [address] 03/01/2025 10:19:00 03/01/2025 11:04:11 Allergic rhinitis [id number] J30.89 [id number] EDITA [facility], [facility] Allergy 100 [facility] 100 [place] [address] 03/01/2025 10:29:18 03/01/2025 11:09:32 Perennial allergic rhinitis 244180044 J30.89 Health Concerns Section Related Observation LastModified by Organization Detai ls LastModified Time None Recorded Concern Status LastModified by Organization Details LastModified Time None Recorded Advance Directives Directive None Recorded Payers Insurance Date Sequence Insurance Name Policy Number Policy Sampson Covered Member ID Sampson Member ID Guarantor Name 03/01/2025 1 [facility] [id number] Sangeeta Mota [id number] Sangeeta Mota 03/01/2025 1 [facility] [id number] Sangeeta L Svetlana [id number] Sangeeta Svetlana Notes Date Note Type Note Provider Name and Address Organization Details Recorded Time 03/01/2025 text/html ROS as noted in the HPI [facility] 02/2019monthly began 02/2024epipenallerg y sx under controlfew asthma flareups has upcoming apt with rheum in of rash, significant rx change, stye in eye, fibromyalgia, ache, chronic dry cough suspected to be related to lisinopril BP med - now changed to losartan PV 08/26/24 Marylu globus FOL benign presumed related to attempts to extract tonsil stones DIOGENES COLLIER MD [address] [place] [address],[place] [address], [place], [id number], [place] - [facility] 03/01/2025 11:03:54 OBGyn Episode No OBEpisode recorded.
== END 2025-05-05 15:18 | disposition home or self-care (01) ==
LOC: HO.RHES 14:51
PROVIDERS: PCP Internal Medicine; Visit Provider Internal Medicine Rheumatology
DX: R20.0 Anesthesia of skin (principal); G56.03 Carpal tunnel syndrome, bilateral upper limbs
CPT/HCPCS: 20526; 99213

== ENCOUNTER → 2025-05-05 14:51 | Outpatient (BNVA) | payer BC, SELFPAY | PROVIDERS: PCP Internal Medicine; Visit Provider Internal Medicine Rheumatology | DX: G56.03 Carpal tunnel syndrome, bilateral upper limbs (principal) | CPT/HCPCS: 20526; J2003; J3301 ==